=== PATIENT | female | born 1940 | race Caucasian/White ===

== ENCOUNTER 2020-07-09 12:29 | Inpatient (IN) ==
--- OUTSIDE RECORDS SUMMARY | 2020-07-09 12:32 | External Medical Summary | Continuity of Care Document ---
:1940 Author Name Mary Lou Wilder, Provider Address Unavailable Unavailable , Care Team Providers Name Role Phone Unavailable Unavailable Unavailable PCP, UNKNOWN Unavailable Unavailable Problems Active medical history not documented Allergies and Adverse Reactions Allergy history not documented Medications Medications not documented Procedures Procedures not documented Immunizations Immunizations not documented Plan of Treatment Planned Observations Planned Goals not documented Results No Known Results Results not documented
[2020-07-09 13:51] LABS: Basophils # (auto) 0.01 K/uL (0-0.2); Basophils % (auto) 0.1 %; Eosinophils # (auto) 0.01 K/uL (0-0.5); Eosinophils % (auto) 0.1 %; Hematocrit (blood only) 36.8 % (37-47); Hemoglobin 12.9 g/dL (12.0-16.0); Immature Granulocytes # (auto) 0.04 K/uL (0.00-0.02); Immature Granulocytes % (auto) 0.5 %; Lymphocytes # (auto) 0.62 K/uL (1.2-3.4); Lymphocytes % (auto) 7.8 %; Mean Corpuscular Hemoglobin 33.7 pg (25-34); Mean Corpuscular Hgb Conc 35.1 g/dL (32-36); Mean Corpuscular Volume 96.1 fL (80-100); Mean Platelet Volume 9.8 fL (7.4-10.4); Monocytes # (auto) 0.62 K/uL (0.11-0.59); Monocytes % (auto) 7.8 %; Neutrophils # (auto) 6.62 K/uL (1.4-6.5); Neutrophils % (auto) 83.7 %; Platelet Count 298 K/uL (130-400); RDW Standard Deviation 48.4 fL (36.4-46.3); Red Blood Count 3.83 M/uL (4.2-5.4); White Blood Count 7.92 K/uL (4.8-10.8)
--- NOTE | 2020-07-09 13:53 | Emergency Department Note ---
Impression & Plan Lumbar radiculopathy ED Provider Note INFORMANT: Patient ED PROVIDER(S): Jaun Hays MD CHIEF COMPLAINT: Back pain PLAN: Disposition: Admitted Condition: Good Outpatient prescription management: None Referral: None MEDICAL DECISION MAKING: Patient presented complaining of significant back pain she also noted some flushing burning sensation in her arms. She was treated with IV Dilaudid and Zofran and did feel better with this. The patient's CBC and chemistry panel was unremarkable. She also had a negative troponin and urinalysis. ECG revealed an atrial sensed ventricular paced rhythm. The patient underwent CT imaging of her neck and her lumbar spine. She was found to have adenopathy in the neck and a abnormality in the area of the iliac on lumbar imaging. Radiology did raise concerns about possible lymphoma. CBC is unremarkable and the patient does not have a history. I did discuss the abnormalities with the patient and daughter. The patient does have nerve impingement and this is likely the cause of her pain in the right leg. The patient and daughter were pleased with the treatment. Consultation was made with the hospitalist service. The patient was evaluated in the ER by the [facility] team admitted. Triage Nursing notes reviewed and agree them. Additional history obtained from daughter Vital Signs: reviewed and remarkable for no significant abnormalities Differential diagnosis: Musculoskeletal, disc herniation, fracture, metastatic disease, cord compression, discitis, sciatica, cauda equina, infection, aortic disease, renal colic, gastrointestinal, as well as other pathologies. Diagnostics interpreted by me: ECG: Twelve-lead ECG reveals an atrial sensed ventricular paced rhythm at 92 bpm there is no ST elevation. No dysrhythmia. When compared to ECG of 2013 the paced rhythm is new. Imaging studies: CT scans of the cervical spine and lumbar spine as noted above. I refer you to the EMR for further details. Consultation(s): [facility] hospitalist service HPI: The patient is a 79 year old female who presents to the Emergency Room with complaints of low back pain. This started 10 days ago and is worsening. The patient also notes the following associated symptoms, neck pain, arm pain described as burning and pain in the right leg. Saw [facility] ortho at [facility] and had xrays done. Noted "pinch nerve" and prescribed medication and PT. Noted upset stomach with gabapentin and the hydrocodone did not help the pain. The patient has also tried steroids for relieving factors. Current pain is rated as 10/10. Pt denies LOC, headache, fevers, chills, diaphoresis, visual changes, chest pain, breathing difficulties, nausea, vomiting, abdominal pain, bowel or bladder dysfunction, melena, hematochezia, urinary symptoms, numbness, weakness, lymphadenopathy, rash, or other complaints. ROS: See above HPI for pertinent positives & negatives. A total of 10 systems reviewed and were otherwise negative. PAST MEDICAL HISTORY:See Below , bowel obstructions PAST SURGICAL HISTORY:See Below,pacemaker FAMILY HISTORY:See Below SOCIAL HISTORY:See Below, Occ. Etoh HOME MEDICATIONS:See Below ALLERGIES:See Below VITALS:See Below PHYSICAL EXAMINATION: GENERAL: Awake, alert, uncomfortable-appearing, in no distress HENT: Normocephalic, atraumatic. Oropharynx unremarkable. EYES: Normal conjunctiva. Sclera non-icteric. NECK: Inspection normal. Non-tender. Supple. No nuchal rigidity. FROM. No masses. RESPIRATORY: Clear to auscultation. No wheezes. No rales. Normal respiratory effort. CARDIAC: Normal rate. Normal rhythm. No murmurs. No rubs. Extremities warm and well perfused. Pulses equal. No JVD. GI: Soft, non-distended. No tenderness to palpation. No rebound or guarding. No masses. RECTAL: Deferred. MUSCULOSKELETAL: Atraumatic. Chest examination reveals no tenderness. The back is symmetrical on inspection without obvious abnormality. Right sciatic notch TTP. There is no CVA tenderness to palpation. No joint edema. LOWER EXTREMITIES: Calves are equal size bilaterally and non-tender. No edema. No discoloration. NEURO: Normal sensorium. No sensory or motor deficits noted. No saddle anesthesia SKIN: No rash or jaundice noted. Jaun Hays MD Past Med/Surg History Medical History Atrial fibrillation CKD (chronic kidney disease), stage III GERD (gastroesophageal reflux disease) Pacemaker Tachy-joseluis syndrome Surgical History History of hysterectomy Family History Father Heart disease Mother Colorectal cancer Social History Smoking Status: Former smoker Hx Alcohol Use: No Hx Substance Use: No Preferred Language: Citizen Of [place] Communication Ability: Effective Equal Opportunity Officer Required: No Beliefs That Will Affect Care: None Current Living Situation: Alone Feels Safe at Home: Yes Safety Concerns: Feels Safe At This Time Assistive Devices: None Allergies Allergies Allergy/AdvReac Type Severity Reaction Status Date / Time No Known Allergies Allergy Unknown Verified 07/09/20 14:40 Home Meds Home Medications Medication Instructions Recorded Confirmed apixaban [Eliquis] 5 mg PO BID 07/09/20 07/09/20 docusate sodium [Colace] 100 mg PO DAILY 07/09/20 07/09/20 flecainide 75 mg PO Q12H 07/09/20 07/09/20 methylprednisolone 4 mg PO UD 07/09/20 07/09/20 [Methylprednisone] metoprolol succinate 25 mg PO DAILY 07/09/20 07/09/20 mineral oil 15 ml PO DAILY 07/09/20 07/09/20 triazolam 0.125 mg PO HS 07/09/20 07/09/20 Results & Data (ED) Vital Signs Vital Signs - 24 hr 07/09/20 12:47 07/09/20 13:30 07/09/20 13:35 Temperature 36.5 C Temperature Source Temporal Artery Scan Pulse Rate 98 H 93 H Pulse Rate from SpO2 Sensor 93 H Pulse Rhythm Regular Pulse Strength Normal Respiratory Rate 18 21 16 Respiratory Effort / Characteristics Non-Labored Spontaneous Non-Labored Spontaneous Respiratory Depth Normal Normal Respiratory Pattern Regular Blood Pressure 116/78 147/89 H Blood Pressure Mean 90 108 Blood Pressure Position Sitting Pulse Oximetry 98 98 98 Oxygen Delivery Method Room Air Room Air Sepsis Recent Fever Within 48 Hours No Sepsis New/Unexplained Change in Mental Status No Sepsis Action Taken by Nursing No Action Required 07/09/20 14:00 07/09/20 14:30 07/09/20 15:31 Temperature Temperature Source Pulse Rate 95 H 98 H 96 H Pulse Rate from SpO2 Sensor 95 H 99 H Pulse Rhythm Pulse Strength Respiratory Rate 25 H 19 18 Respiratory Effort / Characteristics Respiratory Depth Respiratory Pattern Blood Pressure 127/73 133/96 Blood Pressure Mean 91 108 Blood Pressure Position Pulse Oximetry 97 98 Oxygen Delivery Method Sepsis Recent Fever Within 48 Hours Sepsis New/Unexplained Change in Mental Status Sepsis Action Taken by Nursing 07/09/20 15:32 Temperature Temperature Source Pulse Rate 95 H Pulse Rate from SpO2 Sensor 96 H Pulse Rhythm Pulse Strength Respiratory Rate 16 Respiratory Effort / Characteristics Respiratory Depth Respiratory Pattern Blood Pressure 142/75 H Blood Pressure Mean 97 Blood Pressure Position Pulse Oximetry 99 Oxygen Delivery Method Sepsis Recent Fever Within 48 Hours Sepsis New/Unexplained Change in Mental Status Sepsis Action Taken by Nursing Laboratory Data Result diagrams: 07/09/20 13:32 07/09/20 13:32 Lab Results 07/09/20 07/09/20 07/09/20 Range/Units 13:32 13:32 14:36 WBC 7.92 (4.8-10.8) K/uL RBC 3.83 L (4.2-5.4) M/uL Hgb 12.9 (12.0-16.0) g/dL Hct 36.8 L (37-47) % MCV 96.1 (80-100) fL MCH 33.7 (25-34) pg MCHC 35.1 (32-36) g/dL RDW Std Deviation 48.4 H (36.4-46.3) fL RDW Coeff of Oliver 14.0 (11.5-14.5) % Plt Count 298 (130-400) K/uL MPV 9.8 (7.4-10.4) fL Immature Gran % (Auto) 0.5 % Neut % (Auto) 83.7 % Lymph % (Auto) 7.8 % Wayne % (Auto) 7.8 % Eos % (Auto) 0.1 % Baso % (Auto) 0.1 % Neut # (Auto) 6.62 H (1.4-6.5) K/uL Lymph # (Auto) 0.62 L (1.2-3.4) K/uL Wayne # (Auto) 0.62 H (0.11-0.59) K/uL Eos # (Auto) 0.01 (0-0.5) K/uL Baso # (Auto) 0.01 (0-0.2) K/uL Immature Gran # (Auto) 0.04 H (0.00-0.02) K/uL Absolute Nucleated RBC 0.00 (0-0) K/uL Nucleated RBC % (auto) 0.0 % Sodium 130 L (136-145) mmol/L Potassium 4.1 (3.5-5.1) mmol/L Chloride 97 L (98-107) mmol/L Carbon Dioxide 23 (21-32) mmol/L Anion Gap 11.0 (3-11) BUN 23 H (7-18) mg/dl Creatinine 1.40 H (0.6-1.2) mg/dl Est Cr Clr Drug Dosing 28.8 ml/min Est GFR ( Amer) 41.0 Est GFR (Non-Af Amer) 35.4 BUN/Creatinine Ratio 16.1 (10-20) Glucose 108 H (70-99) mg/dl Calcium 9.0 (8.5-10.1) mg/dl Total Bilirubin 2.1 H (0.2-1) mg/dl AST 21 (15-37) U/L ALT 30 (12-78) U/L Alkaline Phosphatase 89 (45-117) U/L Troponin I < 0.015 (0-0.045) ng/ml Total Protein 6.8 (6.4-8.2) gm/dl Albumin 4.1 (3.4-5.0) gm/dl Globulin 2.7 (2.5-4.0) gm/dl Albumin/Globulin Ratio 1.5 (0.9-2) Urine Color Urine Appearance (Clear) Urine pH (4.5-7.5) Ur Specific [place] (1.000-1.030) Urine Protein (Negative) Urine Glucose (UA) (Negative) Urine Ketones (Negative) Urine Blood (Negative) Urine Nitrite (Negative) Urine Bilirubin (Negative) Urine Urobilinogen (Negative) Ur Leukocyte Esterase (Negative) COVID-19 Eval Order Covid19 [facility] SARS-CoV-2, RNA, NAAT (NEGATIVE) 07/09/20 07/09/20 Range/Units 14:36 14:41 WBC (4.8-10.8) K/uL RBC (4.2-5.4) M/uL Hgb (12.0-16.0) g/dL Hct (37-47) % MCV (80-100) fL MCH (25-34) pg MCHC (32-36) g/dL RDW Std Deviation (36.4-46.3) fL RDW Coeff of Oliver (11.5-14.5) % Plt Count (130-400) K/uL MPV (7.4-10.4) fL Immature Gran % (Auto) % Neut % (Auto) % Lymph % (Auto) % Wayne % (Auto) % Eos % (Auto) % Baso % (Auto) % Neut # (Auto) (1.4-6.5) K/uL Lymph # (Auto) (1.2-3.4) K/uL Wayne # (Auto) (0.11-0.59) K/uL Eos # (Auto) (0-0.5) K/uL Baso # (Auto) (0-0.2) K/uL Immature Gran # (Auto) (0.00-0.02) K/uL Absolute Nucleated RBC (0-0) K/uL Nucleated RBC % (auto) % Sodium (136-145) mmol/L Potassium (3.5-5.1) mmol/L Chloride (98-107) mmol/L Carbon Dioxide (21-32) mmol/L Anion Gap (3-11) BUN (7-18) mg/dl Creatinine (0.6-1.2) mg/dl Est Cr Clr Drug Dosing ml/min Est GFR ( Amer) Est GFR (Non-Af Amer) BUN/Creatinine Ratio (10-20) Glucose (70-99) mg/dl Calcium (8.5-10.1) mg/dl Total Bilirubin (0.2-1) mg/dl AST (15-37) U/L ALT (12-78) U/L Alkaline Phosphatase (45-117) U/L Troponin I (0-0.045) ng/ml Total Protein (6.4-8.2) gm/dl Albumin (3.4-5.0) gm/dl Globulin (2.5-4.0) gm/dl Albumin/Globulin Ratio (0.9-2) Urine Color Yellow Urine Appearance Clear (Clear) Urine pH 5.0 (4.5-7.5) Ur Specific [place] 1.013 (1.000-1.030) Urine Protein Negative (Negative) Urine Glucose (UA) Negative (Negative) Urine Ketones 1+ H (Negative) Urine Blood Negative (Negative) Urine Nitrite Negative (Negative) Urine Bilirubin Negative (Negative) Urine Urobilinogen Negative (Negative) Ur Leukocyte Esterase Negative (Negative) COVID-19 Eval Order SARS-CoV-2, RNA, NAAT NEGATIVE (NEGATIVE) Administered Medications Flecainide Acetate (Flecainide Acetate 100 Mg Tablet) 75 mg PO Q12H [facility] Stop: 08/08/20 18:59 Last Admin: 07/09/20 19:00 Dose: 75 mg Documented by: [id number] Sodium Chloride (Nss 1000ml) 1,000 mls @ 80 mls/hr IV .[id number] [facility]AN[facility] Stop: 07/10/20 18:53 Last Admin: 07/09/20 18:28 Dose: 80 mls/hr Documented by: [id number] Lidocaine (Lidocaine 5% 1 Patch) 1 patch TD DAILY@1800 [facility] Stop: 08/08/20 17:59 Last Admin: 07/09/20 18:58 Dose: 1 patch Documented by: [id number] Miscellaneous (Remove Lidoderm Patch) 1 ea N/A DAILY@0600 [facility] Stop: 08/08/20 17:59 Last Admin: 07/09/20 18:59 Dose: Not Given Documented by: [id number] Discontinued Medications Hydromorphone HCl (Hydromorphone Inj 0.5 Mg/0.5 Ml Syr) 0.5 mg IV Q15M PRN PRN Reason: Pain Stop: 07/23/20 13:57 Last Admin: 07/09/20 14:34 Dose: 0.5 mg Documented by: [id number] Ondansetron HCl (Ondansetron Inj 2 Mg/Ml 2 Ml Vial) 4 mg IV NOW STA Stop: 07/09/20 13:59 Last Admin: 07/09/20 14:34 Dose: 4 mg Documented by: [id number] Discharge Plan Visit Data Chief Complaint: Back Injury/Pain Stated Complaint: pain in back shooting down legs and arms ED Provider: Jaun Hays Discharge Problem: Lumbar radiculopathy Patient Disposition: Admitted As Inpatient Discharge Instructions Interventions: ED Discharge Assessment Last Done: 07/09/20 17:22
[2020-07-09] MEDS ORDERED: HYDROmorphone INJ 0.5 MG/0.5 ML SYR IV PRN ×2 (13:58→17:54)
[2020-07-09] MEDS ORDERED: ONDANSETRON INJ 2 MG/ML 2 ML VIAL IV STA (13:58)
[2020-07-09 14:08] LABS: Alanine Aminotransferase 30 U/L (12-78); Albumin Level 4.1 gm/dl (3.4-5.0); Aspartate Aminotransferase 21 U/L (15-37); BUN Creatinine Ratio 16.1 (10-20); Blood Urea Nitrogen 23 mg/dl (7-18); Carbon Dioxide 23 mmol/L (21-32); Chloride 97 mmol/L (98-107); Creatinine Clr Calc Pharmacy 28.8 ml/min; Est GFR (Non-African American) 35.4; Glucose 108 mg/dl (70-99); Potassium 4.1 mmol/L (3.5-5.1); Sodium 130 mmol/L (136-145)
[2020-07-09 14:12] LABS: Albumin Globulin Ratio 1.5 (0.9-2); Alkaline Phosphatase 89 U/L (45-117); Bilirubin,Total 2.1 mg/dl (0.2-1); Globulin 2.7 gm/dl (2.5-4.0); Total Protein 6.8 gm/dl (6.4-8.2); Troponin I < 0.015 ng/ml (0-0.045)
[2020-07-09 15:09] LABS: Appearance Urine Clear (Clear); Bilirubin Urine Negative (Negative); Blood Urine Negative (Negative); Color Urine Yellow; Glucose Urine UA Negative (Negative); Ketones Urine 1+ (Negative); Leukocyte Esterase Urine Negative (Negative); Nitrite Urine Negative (Negative); Protein Urine Negative (Negative); Specific Gravity Urine 1.013 (1.000-1.030); Urobilinogen Urine Negative (Negative)
--- NOTE | 2020-07-09 15:42 | CT Scan Report ---
CT SCAN OF THE CERVICAL SPINE CLINICAL HISTORY: Neck pain. COMPARISON STUDY: No priors. TECHNIQUE: CT scan of the cervical spine is performed from the skull base to the upper thoracic spine . Images are reviewed in the axial, sagittal, and coronal planes. IV contrast was not administered fo r this examination. A dose lowering technique was utilized adhering to the principles of ALARA. CT DOSE: 1083.44 mGy.cm FINDINGS: Skeletal structures: The skeletal structures are osteopenic. There is no evidence of fracture or subl uxation involving the cervical spine. Vertebral body height is maintained. There is minimal anterolis thesis at C3-C4 and C4-C5. Alignment is otherwise preserved. There is straightening of the cervical l ordosis. Anterior osteophytes are seen throughout. The odontoid process and lateral masses are intact . The atlantoaxial articulation is preserved. The spinous processes appear intact. There is moderate to advanced multilevel cervical spondylosis. Uncovertebral and facet arthropathy contribute to forami nal stenosis at most levels. There is complete bony fusion of several facet joints. Intervertebral discs: There is moderate disc space narrowing at C5-C6 and C6-C7. Mild disc space narr owing is seen at C4-C5. Central canal: Large posterior disc osteophyte complexes at C4-C5, C5-C6, and C6-C7 may contribute to multilevel acquired compromise of the central canal. Soft tissues: The prevertebral and paraspinous soft tissues are within normal limits. There are numer ous prominent cervical lymph nodes. A left cervical chain node on image #41 measures 1.2 x 1.0 cm. A left cervical node on image #35 measures 1.0 x 0.9 cm. A node in the right lower cervical chain on im age #67 measures 1.1 x 0.7 cm. Calvarium: The visualized calvarium at the skull base appears intact. Brain parenchyma: Partially visualized brain parenchyma at the skull base is within normal limits. Sinuses and mastoids: The visualized paranasal sinuses are clear. The mastoid air cells are well pneu matized. Lung apices: Clear as visualized. IMPRESSION: 1. There is no evidence of fracture or subluxation involving the cervical spine. 2. Osteopenia and multilevel spondylotic change as above. 3. There are numerous mildly enlarged cervical chain lymph nodes. Clinical correlation will be requir ed. ACT 112: Negative or not required by law. Electronically signed by: Mino Venegas M.D. 07/09/2020 3:41 PM
--- NOTE | 2020-07-09 15:44 | CT Scan Report ---
LUMBAR SPINE CT CT DOSE: HISTORY: right sciatic pain TECHNIQUE: Multiaxial CT images of the lumbar spine were performed and reformatted in the sagittal an d coronal plane without the use of contrast. A dose lowering technique was utilized adhering to the principles of ALARA. COMPARISON: None. FINDINGS: A punctate stone within the left kidney. There is abnormal soft tissue surrounding the left common iliac artery. This is concerning for a neoplastic process such as lymphoma. This measures up to 2 cm in thickness. No fracture or subluxation within the lumbar spine. Severe disc space narrowing with partial fusion of the L5-S1 vertebral bodies. There is mild disc space narrowing at L2-L3 and T 12-L1. 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 This is most pronounced at the L 3-L4 and L4-L5 levels. Small right paracentral focal disc protrusion at L1-L2 without significant fabiola tral canal narrowing. There is a moderate to large right paracentral/foraminal focal disc protrusion at L2-L3 which measures 1.6 x 0.5 cm. The disc protrusion likely compresses the exiting right nerve r oot at this level. There is moderate to severe central canal narrowing at this level due to the disc bulge and severe ligamentum and facet hypertrophy. Mild to moderate central canal narrowing at L3-L4 and L4-L5 due to the disc bulges and advanced ligamentum and facet hypertrophy. Calcified small focal central disc protrusion at L5-S1 resulting in mild central canal narrowing. IMPRESSION: 1. No fracture or subluxation within the lumbar spine. 2. Abnormal soft tissue surrounding the left common iliac artery measuring up to 2 cm in thickness. T his is concerning for neoplastic process such as lymphoma. 3. There is a moderate to large right paracentral/foraminal disc protrusion at L2-L3 which likely com presses the exiting nerve root at this level. 4. Additional degenerative changes as described above. ACT 112: Negative or not required by law. Electronically signed by: Ahmet Savage M.D. 07/09/2020 3:43 PM
[2020-07-09] MEDS ORDERED: ACETAMINOPHEN 325 MG TAB PO PRN (17:54)
[2020-07-09] MEDS ORDERED: DEXAMETHASONE SOD INJ 4 MG/ML VIAL IV SCH (17:54)
--- NOTE | 2020-07-09 18:17 | Electrocardiogram Report ---
Test Reason : Blood Pressure : / mmHG Vent. Rate : 092 BPM Atrial Rate : 092 BPM P-R Int : 208 ms QRS Dur : 088 ms QT Int : 400 ms P-R-T Axes : 099 084 108 degrees QTc Int : 494 ms Atrial-sensed ventricular-paced rhythm Abnormal ECG When compared with ECG of 13-AUG-2012 06:36, Electronic ventricular pacemaker has replaced Sinus rhythm Vent. rate has increased BY 47 BPM Confirmed by Gage Dang ([id number]) on 07/09/2020 6:16:33 PM Referred By: Confirmed By:Gage Dang
--- NOTE | 2020-07-09 18:25 | History & Physical Report ---
Date of Service July 09, 2020 Assessment & Plan (1) Lumbar radiculopathy: Pt is 79 y/o F with PMH atrial fibrillation on Eliquis, tachybrady syndrome s/p pacemaker, CKD III, GERD presented to ER for low back pain x [address] C-SPINE: There is no evidence of fracture or subluxation involving the cervical spine. CT L-SPINE: No fracture or subluxation within the lumbar spine. Abnormal soft tissue surrounding the left common iliac artery measuring up to 2 cm in thickness. This is concerning for neoplastic process such as lymphoma. There is a moderate to large right paracentral/foraminal disc protrusion at L2-L3 which likely compresses the exiting nerve root at this level. Afebrile. In ER given Dilaudid with moderate relief of pain. Oxycodone, Dilaudid prn pain Decadron 4mg Q8H Consult Spine ortho PT/OT eval (2) Lymphadenopathy: CT Cervical spine: are numerous mildly enlarged cervical chain lymph nodes CT Lumbar spine: Abnormal soft tissue surrounding the left common iliac artery measuring up to 2 cm in thickness. This is concerning for neoplastic process such as lymphoma. Denies weight loss, appetite changes, noted lymphadenopathy Obtain peripheral smear Anticipate will need outpatient follow up heme/onc (3) Hyponatremia: Na: 130 Gentle IVF Recheck BMP in am (4) Atrial fibrillation: On Eliquis Hold Eliquis for now in case of procedure and dose heparin SQ Continue flecainide (5) Tachy-joseluis syndrome: S/P pacemaker paced rhythm on ekg (6) CKD (chronic kidney disease), stage III: Cr: 1.4. Baseline Cr: 1.2 Monitor renal functions, avoid nephrotoxic agents when possible (7) GERD (gastroesophageal reflux disease): Pt was taking Zantac with relief until off market Will start pepcid BID as is on steroids DVT Prophylaxis -Heparin SQ Full Code as per discussion with pt Follows with G provider- Gerard Guidry PA-C for routine care Pt was seen and care coordinated with Dr Billings. See addendum Admission and Anticipated Discharge Date Admission Date: July 09, 2020 History of Present Illness Chief Complaint: back pain Primary Care Provider: Gerard Guidry Pt is 79 y/o F with PMH atrial fibrillation on Eliquis, tachybrady syndrome s/p pacemaker, CKD III, GERD presented to ER for low back pain x 10 days. Reports was reaching overhead and felt popping sensation to low back 10 days ago. C/O right low back pain with radiation to right lower leg ending at the knee. Also c/o paresthesias and numbness sensation to right thigh. Denies any other injury or trauma. Reports had some burning sensation of low back that radiated up back to neck and down bilateral arms. Went to PT and is On medrol dose pack without relief. Tried gabapentin, duloxetine but she reports side effects so did not take further. Reports has appointment with Ortho Spine-Dr Orozco next week. Denies fever/chills, diaphoresis, N/V/D/C, SCOTT, dizziness, syncope, vision changes, neck pain, CP, SOB, orthopnea, palpitations, cough, sore throat, choking, otalgia, rhinorrhea, abdominal pain, extremity weakness, extremity edema, rashes, urinary symptoms, loss control of bowel/bladder. Allergies Allergy/AdvReac Type Severity Reaction Status Date / Time No Known Allergies Allergy Unknown Verified 07/09/20 14:40 Home Medications Medication Instructions Recorded Confirmed Type apixaban [Eliquis] 5 mg PO BID 07/09/20 07/09/20 History docusate sodium [Colace] 100 mg PO DAILY 07/09/20 07/09/20 History flecainide 75 mg PO Q12H 07/09/20 07/09/20 History methylprednisolone 4 mg PO UD 07/09/20 07/09/20 History [Methylprednisone] metoprolol succinate 25 mg PO DAILY 07/09/20 07/09/20 History mineral oil 15 ml PO DAILY 07/09/20 07/09/20 History triazolam 0.125 mg PO HS 07/09/20 07/09/20 History Past Med/Surg History Medical History Atrial fibrillation CKD (chronic kidney disease), stage III GERD (gastroesophageal reflux disease) Pacemaker Tachy-joseluis syndrome Surgical History History of hysterectomy Family History Father Heart disease Mother Colorectal cancer Social History Smoking Status: Former smoker Hx Alcohol Use: No Hx Substance Use: No Preferred Language: Korean Communication Ability: Effective Visual Design Lead Required: No Beliefs That Will Affect Care: None Current Living Situation: Alone Feels Safe at Home: Yes Safety Concerns: Feels Safe At This Time Assistive Devices: Glasses Review of Systems Review of Systems: All systems reviewed & are unremarkable except as noted in HPI & below Physical Exam Physical Exam: General: no distress, WDWN Head: normocephalic, atraumatic Eyes: conjunctiva non-injected, anicteric ENT: normal inspection external ears, nose, mucous membranes moist Neck: supple, trachea midline, +nontender palpable cervical lymphadenopathy; no supraclavicular or axillary lymphadenopathy noted on palpation Lungs: clear, no respiratory distress, no wheezing/rhonchi/rales CV: RRR, no murmur, no pretibial edema Abd: normal BS, soft, non-tender Back: no discoloration, no significant tenderness to palpation of back at this time (pt received pain meds prior to exam), negative straight leg raising Ext: no cyanosis, no calf tenderness, distal pulses intact, sensation to light touch intact Neuro: A&O x 3, no focal deficits noted, normal affect Skin: warm, dry Results & Data Results & Data ([facility]) Vital Signs (Past 12 Hours) Vital Signs Temp Pulse Pulse Resp BP BP Pulse Ox 07/09/20 18:16 98 H 07/09/20 17:56 36.9 C 96 H 20 155/98 H 96 07/09/20 15:32 95 H 16 142/75 H 99 07/09/20 15:31 96 H 18 07/09/20 14:30 98 H 19 133/96 98 07/09/20 14:00 95 H 25 H 127/73 97 07/09/20 13:35 16 98 07/09/20 13:30 93 H 21 147/89 H 98 07/09/20 12:47 36.5 C 98 H 18 116/78 98 Laboratory Results Short CBC 07/09/20 Range/Units 13:32 WBC 7.92 (4.8-10.8) K/uL Hgb 12.9 (12.0-16.0) g/dL Hct 36.8 L (37-47) % Plt Count 298 (130-400) K/uL BMP 07/09/20 13:32 Sodium 130 L Potassium 4.1 Chloride 97 L Carbon Dioxide 23 BUN 23 H Creatinine 1.40 H Glucose 108 H Calcium 9.0 Cardiac Enzymes 07/09/20 Range/Units 13:32 Troponin I < 0.015 (0-0.045) ng/ml Liver Function 07/09/20 Range/Units 13:32 Total Bilirubin 2.1 H (0.2-1) mg/dl AST 21 (15-37) U/L ALT 30 (12-78) U/L Alkaline Phosphatase 89 (45-117) U/L Albumin 4.1 (3.4-5.0) gm/dl Urine 07/09/20 Range/Units 14:41 Urine Color Yellow Urine Appearance Clear (Clear) Urine pH 5.0 (4.5-7.5) Ur Specific [place] 1.013 (1.000-1.030) Urine Protein Negative (Negative) Urine Glucose (UA) Negative (Negative) Diagnostic Findings CT C-SPINE: IMPRESSION: 1. There is no evidence of fracture or subluxation involving the cervical spine. 2. Osteopenia and multilevel spondylotic change as above. 3. There are numerous mildly enlarged cervical chain lymph nodes. Clinical correlation will be required. CT L-SPINE: IMPRESSION: 1. No fracture or subluxation within the lumbar spine. 2. Abnormal soft tissue surrounding the left common iliac artery measuring up to 2 cm in thickness. This is concerning for neoplastic process such as lymphoma. 3. There is a moderate to large right paracentral/foraminal disc protrusion at L2-L3 which likely compresses the exiting nerve root at this level. 4. Additional degenerative changes as described above. ECG Findings: + paced rhythm Supervising Physician Co-Signing Physician Notes Patient is a 79-year-old female with history of atrial fibrillation, CKD stage III and other medical problems presents with history of worsening low back pain since 10 days duration. She reports associated right thigh numbness but denies any history of trauma. She denies any bowel or bladder incontinence, lower back numbness. Please review HPI for complete details of presentation. Lumbar spine CT showed findings suggestive of moderate to large disc protrusion at L2- L3, compressing the exiting nerve root at the level. Also showed incidental findings of soft tissue surrounding left common iliac artery measuring 2 cm in thickness. On exam patient is thin, well-nourished, no apparent distress, normocephalic atraumatic, lungs are clear to auscultation, normal breath sounds, irregular irregular heart sounds, no murmur, no pedal edema, abdomen soft, nontender, normal bowel sounds, alert, awake, oriented, grossly no focal neurologic deficits. Patient is admitted for management of lumbar radiculopathy secondary to disc herniation at L2-L3. Started on Decadron. Pain control. Consulted orthopedic surgery. PT OT consulted. Agree with holding Eliquis for possible procedure. May need steroid injection. Also noted incidental finding of lymphadenopathy in cervical region, and abnormal CT suggestive of soft tissue surrounding the left common iliac artery concerning for neoplastic process. Agree with peripheral smear. Will advise patient to follow-up with oncology as outpatient for further evaluation. I personally reviewed the record. Patient is interviewed and examined at bedside. Patient's care is coordinated with Beatrice Scanlon PA-C. Please refer to the documentation above for details of patient's presentation and for discussion of other issues.
[2020-07-09] MEDS: SODIUM CHLORIDE 0.9% 1000ML 1,000 ML IV SCH (18:28)
[2020-07-09] MEDS: LIDOCAINE 5% 1 PATCH TD SCH (18:58)
[2020-07-09] MEDS: FLECAINIDE ACETATE 100 MG TABLET PO SCH (19:00)
[2020-07-09] MEDS: DEXAMETHASONE SOD PHOSPHATE 4 MG in SYRINGE 0 ML IV SCH (20:50)
[2020-07-09] MEDS: FAMOTIDINE 20 MG TAB PO SCH (20:51)
[2020-07-09] MEDS ORDERED: ALPRAZolam 0.25 MG TABLET PO PRN (21:21)
[2020-07-09] MEDS: HEPARIN SOD 5,000 UNIT/0.5 ML VIAL SQ SCH (21:26)
[2020-07-10] MEDS: DEXAMETHASONE SOD PHOSPHATE 4 MG in SYRINGE 0 ML IV SCH ×3 (02:54→18:13)
[2020-07-10] MEDS: HEPARIN SOD 5,000 UNIT/0.5 ML VIAL SQ SCH ×3 (05:47→21:07)
[2020-07-10] MEDS: SODIUM CHLORIDE 0.9% 1000ML 1,000 ML IV SCH (05:54)
[2020-07-10] MEDS: FLECAINIDE ACETATE 100 MG TABLET PO SCH ×2 (06:28→18:13)
[2020-07-10 06:42] LABS: Hematocrit (blood only) 36.1 % (37-47); Hemoglobin 12.9 g/dL (12.0-16.0); Mean Corpuscular Hemoglobin 34.4 pg (25-34); Mean Corpuscular Hgb Conc 35.7 g/dL (32-36); Mean Corpuscular Volume 96.3 fL (80-100); Mean Platelet Volume 9.9 fL (7.4-10.4); Platelet Count 286 K/uL (130-400); RDW Coefficient of Variation 13.9 % (11.5-14.5); RDW Standard Deviation 48.4 fL (36.4-46.3); Red Blood Count 3.75 M/uL (4.2-5.4); White Blood Count 5.25 K/uL (4.8-10.8)
[2020-07-10 07:00] LABS: BUN Creatinine Ratio 18.1 (10-20); Calcium 8.5 mg/dl (8.5-10.1); Creatinine Clr Calc Pharmacy 29.9 ml/min; Est GFR (African American) 42.9; Potassium 4.2 mmol/L (3.5-5.1)
[2020-07-10] MEDS: FAMOTIDINE 20 MG TAB PO SCH ×2 (08:00→20:34)
[2020-07-10] MEDS: METOPROLOL SUCC 25MG EXT REL TAB PO SCH (08:00)
[2020-07-10] MEDS: DOCUSATE SODIUM 100 MG CAP PO SCH (08:00)
[2020-07-10] MEDS: oxyCODONE HCL IR 5 MG TAB (IMMEDIATE RELEASE) PO PRN ×2 (08:00→20:37)
--- NOTE | 2020-07-10 11:23 | Orthopedic Consultation ---
Date of Consultation July 10, 2020 Assessment & Plan (1) Lumbar radiculopathy: Patient's CAT scan does demonstrate evidence of a far lateral disc herniation with foraminal encroachment of L2-L3 on the right. This is consistent with her pain patterns and history. She seems to be responding well to steroids. I agreed to hold Eliquis for now continue with heparin. If her symptoms return she therefore could undergo an epidural injection. Ultimately the symptoms are severe and limiting nature we may have to consider discectomy. I doubt that this would be the course of action reviewing her response to steroids at this time. Present on Admission?: Yes History of Present Illness Reason for Consultation: Right leg pain Attending Physician: Morgan Billings MD History of Present Illness This is a very pleasant 79-year-old female presents with history of significant right anterior thigh pain. Is been present for several weeks. She is failed short course of physical therapy. She is trialed oral pain medication without improvement. She now feels much improved after IV steroids and oxycodone. Allergies Allergy/AdvReac Type Severity Reaction Status Date / Time No Known Allergies Allergy Unknown Verified 07/09/20 14:40 Home Medications Medication Instructions Recorded Confirmed Type apixaban [Eliquis] 5 mg PO BID 07/09/20 07/09/20 History docusate sodium [Colace] 100 mg PO DAILY 07/09/20 07/09/20 History flecainide 75 mg PO Q12H 07/09/20 07/09/20 History methylprednisolone 4 mg PO UD 07/09/20 07/09/20 History [Methylprednisone] metoprolol succinate 25 mg PO DAILY 07/09/20 07/09/20 History mineral oil 15 ml PO DAILY 07/09/20 07/09/20 History triazolam 0.125 mg PO HS 07/09/20 07/09/20 History Patient History Medical History Atrial fibrillation CKD (chronic kidney disease), stage III GERD (gastroesophageal reflux disease) Pacemaker Tachy-joseluis syndrome Surgical History History of hysterectomy Family History Father Heart disease Mother Colorectal cancer Social History Smoking Status: Former smoker Hx Alcohol Use: No Hx Substance Use: No Preferred Language: Central African Communication Ability: Effective Program Director Cable Television Required: No Beliefs That Will Affect Care: None Current Living Situation: Alone Feels Safe at Home: Yes Safety Concerns: Feels Safe At This Time Assistive Devices: Glasses Physical Exam Physical Exam: She still notes some numbness to the right anterior thigh compared to the left. On exam she appears comfortable. She exhibits excellent plus out of 5 strength to plantar flexion dorsiflexion stenosis longus bilateral quadriceps. Negative logroll. Some modest sensory deficits to the right anterior thigh compared to the left. No gross tension signs. Results & Data ([facility]) Vital Signs (Past 12 Hours) Vital Signs Temp Pulse Pulse Resp BP Pulse Ox 07/10/20 07:19 36.6 C 105 H 78 18 120/79 91 07/10/20 03:52 36.5 C 96 H 20 138/82 96 07/10/20 00:17 36.9 C 94 H 20 124/77 94 07/10/20 00:13 90
[2020-07-10] MEDS: POLYETHYLENE (MIRALAX) 17 GM PACK PO SCH (12:23)
--- NOTE | 2020-07-10 15:01 | Hospitalist Progress Note ---
Date of Service July 10, 2020 Assessment & Plan (1) Lumbar radiculopathy: L2-L3 Disc Herniation Lumbar radiculopathy -CT C-SPINE: There is no evidence of fracture or subluxation involving the cervical spine. -CT L-SPINE: No fracture or subluxation within the lumbar spine. Abnormal soft tissue surrounding the left common iliac artery measuring up to 2 cm in thickness. This is concerning for neoplastic process such as lymphoma. There is a moderate to large right paracentral/foraminal disc protrusion at L2-L3 which likely compresses the exiting nerve root at this level. Continue IV Decadron Pain control Appreciate orthopedics input Hold Eliquis for now for possible procedure Continue PT OT May need epidural injection/discectomy if symptoms persist (2) Lymphadenopathy: Incidental findings on CAT scan--Cervical lymphadenopathy -CT Cervical spine: are numerous mildly enlarged cervical chain lymph nodes -CT Lumbar spine: Abnormal soft tissue surrounding the left common iliac artery measuring up to 2 cm in thickness. This is concerning for neoplastic process such as lymphoma. -Peripheral smear: pending -Will need further work-up as outpatient (3) Hyponatremia: Likely secondary to dehydration Sodium levels: 130>135 Received IV fluids Monitor (4) Atrial fibrillation: On Eliquis Hold Eliquis for now Re:Possible need for procedure Continue heparin SQ Continue flecainide, Metoprolol (5) Tachy-joseluis syndrome: S/P pacemaker Continue flecainide, metoprolol (6) CKD (chronic kidney disease), stage III: Baseline Cr: 1.2 Cr:1.3 Monitor renal functions Avoid nephrotoxic agents as able (7) GERD (gastroesophageal reflux disease): Pt was taking Zantac with relief until off market Continue Pepcid BID while on steroids DVT Px Heparin SQ Code Status Full Code Admission and Anticipated Discharge Date Admission Date: July 09, 2020 Subjective Patient is seen and examined at bedside Back pain is better controlled after steroid initiation Discussed with Dr. Orozco this morning Persistent right thigh numbness Tingling, heartburn resolved Denies chest pain, dyspnea, dizziness, nausea, abdominal pain Offers no other complaints Review of Systems Review of Systems: All systems reviewed & are unremarkable except as noted in HPI & below Physical Exam Physical Exam: Physical Exam: Vitals signs as noted above General Appearance:Thin, no apparent distress Head: normocephalic, Atraumatic Eyes: normal inspection, EOMI Neck: supple, Trachea midline Respiratory/Chest: Normal breath sounds, CTA Cardiovascular: Irregularly irregular, no murmur Abdomen/GI:Soft, Non tender, Bowel sounds present Extremities/Musculoskelatal:normal inspection, no edema Neurologic/Psych:AAOX3, grossly no focal neurological deficits Skin: normal color, warm Results & Data Results & Data ([facility]) Vital Signs (Past 12 Hours) Vital Signs Temp Pulse Pulse Resp BP Pulse Ox 07/10/20 14:42 36.6 C 79 18 121/72 94 07/10/20 07:19 36.6 C 105 H 78 18 120/79 91 07/10/20 03:52 36.5 C 96 H 20 138/82 96 Laboratory Results Short CBC 07/10/20 Range/Units 06:10 WBC 5.25 (4.8-10.8) K/uL Hgb 12.9 (12.0-16.0) g/dL Hct 36.1 L (37-47) % Plt Count 286 (130-400) K/uL BMP 07/10/20 06:10 Sodium 135 L Potassium 4.2 Chloride 102 Carbon Dioxide 25 BUN 24 H Creatinine 1.35 H Glucose 105 H Calcium 8.5
[2020-07-10] MEDS: LIDOCAINE 5% 1 PATCH TD SCH (18:09)
[2020-07-10] MEDS: ALPRAZolam 0.5 MG TABLET PO PRN (23:53)
[2020-07-11] MEDS: DEXAMETHASONE SOD PHOSPHATE 4 MG in SYRINGE 0 ML IV SCH ×3 (02:52→21:03)
[2020-07-11] MEDS: HEPARIN SOD 5,000 UNIT/0.5 ML VIAL SQ SCH ×3 (06:02→21:03)
[2020-07-11] MEDS: FLECAINIDE ACETATE 100 MG TABLET PO SCH ×2 (06:03→18:15)
[2020-07-11 06:08] LABS: Hematocrit (blood only) 34.4 % (37-47); Hemoglobin 12.1 g/dL (12.0-16.0); Mean Corpuscular Hemoglobin 34.3 pg (25-34); Mean Corpuscular Hgb Conc 35.2 g/dL (32-36); Mean Corpuscular Volume 97.5 fL (80-100); Nucleated RBC # (auto) 0.02 K/uL (0-0); Nucleated RBC % (auto) 0.3 %; Platelet Count 281 K/uL (130-400); RDW Coefficient of Variation 14.1 % (11.5-14.5); RDW Standard Deviation 50.1 fL (36.4-46.3); Red Blood Count 3.53 M/uL (4.2-5.4); White Blood Count 6.62 K/uL (4.8-10.8)
[2020-07-11 06:40] LABS: BUN Creatinine Ratio 24.7 (10-20); Creatinine Clr Calc Pharmacy 34.2 ml/min; Est GFR (African American) 50.4; Est GFR (Non-African American) 43.5; Magnesium 2.3 mg/dl (1.8-2.4); Potassium 4.4 mmol/L (3.5-5.1)
[2020-07-11] MEDS: POLYETHYLENE (MIRALAX) 17 GM PACK PO SCH (08:05)
[2020-07-11] MEDS: FAMOTIDINE 20 MG TAB PO SCH ×2 (08:05→21:03)
[2020-07-11] MEDS: DOCUSATE SODIUM 100 MG CAP PO SCH (08:05)
[2020-07-11] MEDS: METOPROLOL SUCC 25MG EXT REL TAB PO SCH (08:05)
[2020-07-11] MEDS: oxyCODONE HCL IR 5 MG TAB (IMMEDIATE RELEASE) PO PRN (09:31)
--- NOTE | 2020-07-11 16:12 | Hospitalist Progress Note ---
Date of Service July 11, 2020 Assessment & Plan (1) Lumbar radiculopathy: L2-L3 Disc Herniation Lumbar radiculopathy -CT C-SPINE: There is no evidence of fracture or subluxation involving the cervical spine. -CT L-SPINE: No fracture or subluxation within the lumbar spine. Abnormal soft tissue surrounding the left common iliac artery measuring up to 2 cm in thickness. This is concerning for neoplastic process such as lymphoma. There is a moderate to large right paracentral/foraminal disc protrusion at L2-L3 which likely compresses the exiting nerve root at this level. Continue IV Decadron--Decrease to 4mg PO BID Pain control Appreciate orthopedics input Hold Eliquis for now for possible procedure Continue PT OT May need epidural injection/discectomy if symptoms persist Continue current medications (2) Lymphadenopathy: Incidental findings on CAT scan--Cervical lymphadenopathy -CT Cervical spine: are numerous mildly enlarged cervical chain lymph nodes -CT Lumbar spine: Abnormal soft tissue surrounding the left common iliac artery measuring up to 2 cm in thickness. This is concerning for neoplastic process such as lymphoma. -Peripheral smear: pending -Will need further work-up as outpatient (3) Hyponatremia: Likely secondary to dehydration Sodium levels: 130>135> 136 Received IV fluids Monitor (4) Atrial fibrillation: On Eliquis Hold Eliquis for now Re:Possible need for procedure Continue heparin SQ Continue flecainide, Metoprolol (5) Tachy-joseluis syndrome: S/P pacemaker Continue flecainide, metoprolol (6) CKD (chronic kidney disease), stage III: Baseline Cr: 1.2 Cr:1.4>1.3>1.1 Monitor renal functions Avoid nephrotoxic agents as able (7) GERD (gastroesophageal reflux disease): Pt was taking Zantac with relief until off market Continue Pepcid BID while on steroids DVT Px Heparin SQ Code Status Full Code Disposition PT/OT prior to discharge Admission and Anticipated Discharge Date Admission Date: July 09, 2020 Subjective Patient is seen and examined at bedside Back pain is better Reports right thigh soreness Sitting in chair during my encounter this morning No new complaints Right lower extremity numbness improved Denies chest pain, dyspnea, dizziness, nausea, abdominal pain Offers no other complaints Review of Systems Review of Systems: All systems reviewed & are unremarkable except as noted in HPI & below Physical Exam Physical Exam: Physical Exam: Vitals signs as noted above General Appearance:Thin, no apparent distress Head: normocephalic, Atraumatic Eyes: normal inspection, EOMI Neck: supple, Trachea midline Respiratory/Chest: Normal breath sounds, CTA Cardiovascular: Irregularly irregular, no murmur Abdomen/GI:Soft, Non tender, Bowel sounds present Extremities/Musculoskelatal:normal inspection, no edema Neurologic/Psych:AAOX3, grossly no focal neurological deficits Skin: normal color, warm Results & Data Results & Data ([facility]) Vital Signs (Past 12 Hours) Vital Signs Temp Pulse Pulse Resp BP Pulse Ox 07/11/20 15:00 36.4 C L 113 H 18 117/82 98 07/11/20 11:15 36.2 C L 103 H 20 132/88 97 07/11/20 07:44 36.6 C 94 H 18 125/84 97 07/11/20 07:04 104 H Laboratory Results Short CBC 07/11/20 Range/Units 05:35 WBC 6.62 (4.8-10.8) K/uL Hgb 12.1 (12.0-16.0) g/dL Hct 34.4 L (37-47) % Plt Count 281 (130-400) K/uL BMP 07/11/20 05:35 Sodium 136 Potassium 4.4 Chloride 104 Carbon Dioxide 25 BUN 29 H Creatinine 1.18 Glucose 106 H Calcium 9.0
[2020-07-11] MEDS: LIDOCAINE 5% 1 PATCH TD SCH (18:16)
[2020-07-11] MEDS: ALPRAZolam 0.5 MG TABLET PO PRN (23:26)
[2020-07-12] MEDS: HEPARIN SOD 5,000 UNIT/0.5 ML VIAL SQ SCH ×2 (05:59→14:47)
[2020-07-12] MEDS: FLECAINIDE ACETATE 100 MG TABLET PO SCH ×2 (06:00→18:29)
[2020-07-12 06:27] LABS: BUN Creatinine Ratio 24.8 (10-20); Calcium 9.5 mg/dl (8.5-10.1); Creatinine Clr Calc Pharmacy 28.8 ml/min; Est GFR (Non-African American) 35.4; Potassium 4.7 mmol/L (3.5-5.1)
[2020-07-12] MEDS: FAMOTIDINE 20 MG TAB PO SCH ×2 (08:01→20:49)
[2020-07-12] MEDS: DOCUSATE SODIUM 100 MG CAP PO SCH (08:02)
[2020-07-12] MEDS: METOPROLOL SUCC 25MG EXT REL TAB PO SCH ×2 (08:02→20:49)
[2020-07-12] MEDS: POLYETHYLENE (MIRALAX) 17 GM PACK PO SCH (08:12)
[2020-07-12] MEDS: DEXAMETHASONE SOD PHOSPHATE 4 MG in SYRINGE 0 ML IV SCH (09:51)
[2020-07-12] MEDS ORDERED: METOPROLOL TARTRATE 1 MG/ML VIAL IV PRN (13:39)
--- NOTE | 2020-07-12 15:34 | Hospitalist Progress Note ---
Date of Service July 12, 2020 Assessment & Plan (1) Lumbar radiculopathy: L2-L3 Disc Herniation Lumbar radiculopathy -CT C-SPINE: There is no evidence of fracture or subluxation involving the cervical spine. -CT L-SPINE: No fracture or subluxation within the lumbar spine. Abnormal soft tissue surrounding the left common iliac artery measuring up to 2 cm in thickness. This is concerning for neoplastic process such as lymphoma. There is a moderate to large right paracentral/foraminal disc protrusion at L2-L3 which likely compresses the exiting nerve root at this level. Continue IV Decadron--Decrease to 4mg PO Daily Pain control Appreciate orthopedics input Hold Eliquis for now for possible procedure Continue PT OT May need epidural injection/discectomy if symptoms persist Titrate down steroids as able (2) Lymphadenopathy: Incidental findings on CAT scan--Cervical lymphadenopathy -CT Cervical spine: are numerous mildly enlarged cervical chain lymph nodes -CT Lumbar spine: Abnormal soft tissue surrounding the left common iliac artery measuring up to 2 cm in thickness. This is concerning for neoplastic process such as lymphoma. -Peripheral smear: pending -Will need further work-up as outpatient (3) Hyponatremia: Likely secondary to dehydration Sodium levels: 130>135>136 Received IV fluids Monitor (4) Atrial fibrillation: Afib RVR Was on Eliquis Hold Eliquis for now Re:Possible need for procedure Continue flecainide, Metoprolol Increase Metoprolol to 25mg BID IV Lopressor PRN Start on IV Heparin while off Eliquis Consider cardiology eval if needed (5) Tachy-joseluis syndrome: S/P pacemaker Continue flecainide, metoprolol (6) CKD (chronic kidney disease), stage III: Baseline Cr: 1.2 Cr:1.4 Monitor renal functions Avoid nephrotoxic agents as able (7) GERD (gastroesophageal reflux disease): Pt was taking Zantac with relief until off market Continue Pepcid BID while on steroids DVT Px IV Heparin Code Status Full Code Disposition PT/OT prior to discharge Admission and Anticipated Discharge Date Admission Date: July 09, 2020 Subjective Patient is seen and examined at bedside Right thigh soreness, tingling and numbness continues to improve Denies back pain today Also denies chest pain, dyspnea, dizziness, nausea, abdominal pain No new complaints Afib RVR on monitor Review of Systems Review of Systems: All systems reviewed & are unremarkable except as noted in HPI & below Physical Exam Physical Exam: Physical Exam: Vitals signs as noted above General Appearance:Thin, no apparent distress Head: normocephalic, Atraumatic Eyes: normal inspection, EOMI Neck: supple, Trachea midline Respiratory/Chest: Normal breath sounds, CTA Cardiovascular: Irregularly irregular, no murmur Abdomen/GI:Soft, Non tender, Bowel sounds present Extremities/Musculoskelatal:normal inspection, no edema Neurologic/Psych:AAOX3, grossly no focal neurological deficits Skin: normal color, warm Results & Data Results & Data ([facility]) Vital Signs (Past 12 Hours) Vital Signs Temp Pulse Pulse Resp BP BP Pulse Ox 07/12/20 13:49 120 H 125/76 07/12/20 11:52 36.6 C 70 18 121/74 96 07/12/20 08:08 36.4 C L 101 H 18 119/80 96 07/12/20 07:46 108 H Laboratory Results [facility] 07/12/20 05:24 Sodium 136 Potassium 4.7 Chloride 101 Carbon Dioxide 28 BUN 35 H Creatinine 1.40 H Glucose 109 H Calcium 9.5
[2020-07-12] MEDS ORDERED: Heparin IV Standard *NO* Bolus IV SCH (15:45)
[2020-07-12] MEDS: HEPARIN SODIUM/DEXTROSE 25,000 UNITS/500 ML BAG IV SCH (16:26)
[2020-07-12] MEDS: LIDOCAINE 5% 1 PATCH TD SCH (18:29)
[2020-07-12 22:45] LABS: Partial Thromboplastin Ratio 2.9
[2020-07-12 22:57] LABS: Partial Thromboplastin Time 75.2 Seconds (21.0-31.0)
[2020-07-12] MEDS: ALPRAZolam 0.5 MG TABLET PO PRN (23:25)
[2020-07-13 04:45] LABS: Basophils # (auto) 0.01 K/uL (0-0.2); Basophils % (auto) 0.1 %; Eosinophils # (auto) 0.08 K/uL (0-0.5); Eosinophils % (auto) 0.9 %; Hematocrit (blood only) 35.9 % (37-47); Hemoglobin 12.7 g/dL (12.0-16.0); Immature Granulocytes # (auto) 0.05 K/uL (0.00-0.02); Immature Granulocytes % (auto) 0.5 %; Lymphocytes # (auto) 2.98 K/uL (1.2-3.4); Lymphocytes % (auto) 32.4 %; Mean Corpuscular Hemoglobin 34.5 pg (25-34); Mean Corpuscular Hgb Conc 35.4 g/dL (32-36); Mean Corpuscular Volume 97.6 fL (80-100); Mean Platelet Volume 10.1 fL (7.4-10.4); Monocytes # (auto) 1.31 K/uL (0.11-0.59); Monocytes % (auto) 14.2 %; Neutrophils # (auto) 4.77 K/uL (1.4-6.5); Neutrophils % (auto) 51.9 %; Platelet Count 263 K/uL (130-400); RDW Coefficient of Variation 14.1 % (11.5-14.5); RDW Standard Deviation 49.9 fL (36.4-46.3); Red Blood Count 3.68 M/uL (4.2-5.4)
[2020-07-13 05:07] LABS: Partial Thromboplastin Ratio > 5.3
[2020-07-13 05:10] LABS: Partial Thromboplastin Time > 139.0 Seconds (21.0-31.0)
[2020-07-13 05:27] LABS: BUN Creatinine Ratio 26.3 (10-20); Calcium 8.7 mg/dl (8.5-10.1); Creatinine Clr Calc Pharmacy 30.1 ml/min; Est GFR (African American) 43.3; Est GFR (Non-African American) 37.3; Magnesium 2.4 mg/dl (1.8-2.4); Potassium 3.9 mmol/L (3.5-5.1)
[2020-07-13] MEDS: FLECAINIDE ACETATE 100 MG TABLET PO SCH ×2 (06:08→17:50)
[2020-07-13 08:42] LABS: Partial Thromboplastin Ratio 1.8
[2020-07-13 08:48] LABS: Partial Thromboplastin Time 47.3 Seconds (21.0-31.0)
[2020-07-13] MEDS: FAMOTIDINE 20 MG TAB PO SCH ×2 (08:58→20:15)
[2020-07-13] MEDS: dexAMETHasone 4 MG TAB PO SCH (08:58)
[2020-07-13] MEDS: DOCUSATE SODIUM 100 MG CAP PO SCH (08:59)
[2020-07-13] MEDS: METOPROLOL SUCC 25MG EXT REL TAB PO SCH ×2 (08:59→20:15)
[2020-07-13] MEDS ORDERED: DEXAMETHASONE SOD PHOSPHATE 4 MG in SYRINGE 0 ML IV SCH (09:00)
[2020-07-13] MEDS: POLYETHYLENE (MIRALAX) 17 GM PACK PO SCH (09:04)
--- NOTE | 2020-07-13 13:09 | Orthopedic Progress Note ---
Date of Service July 13, 2020 Assessment & Plan (1) Lumbar radiculopathy: Admission and Anticipated Discharge Date Admission Date: July 09, 2020 Discussion with the patient today she would like to pursue a lumbar injections. She may be a candidate for an L2-L3 transforaminal injection. On the right. I will consult interventional pain management. She is currently on a heparin drip so that she would be able to undergo an injection with appropriate notice. She understands and agrees. Subjective Patient is tolerating very modest activity although she does still experience right L2 radiculopathy rating across the buttock and right anterior thigh. It is improved with steroids. She still somewhat limited. Physical Exam Physical Exam: Patient is in the chair at the bedside. She appears to be relatively comfortable. She exhibits excellent strength to right hip flexors and quadriceps. Results & Data ([facility]) Vital Signs (Past 12 Hours) Vital Signs Temp Pulse Pulse Resp BP Pulse Ox 07/13/20 11:08 36.3 C L 63 18 123/74 98 07/13/20 08:00 83 07/13/20 07:16 36.5 C 72 16 99/63 L 98 07/13/20 04:07 36.4 C L 66 18 103/66 97
[2020-07-13 15:26] LABS: Partial Thromboplastin Ratio 1.5; Partial Thromboplastin Time 39.4 Seconds (21.0-31.0)
--- NOTE | 2020-07-13 15:33 | Hospitalist Progress Note ---
Date of Service July 13, 2020 Assessment & Plan (1) Lumbar radiculopathy: L2-L3 Disc Herniation Lumbar radiculopathy -CT C-SPINE: There is no evidence of fracture or subluxation involving the cervical spine. -CT L-SPINE: No fracture or subluxation within the lumbar spine. Abnormal soft tissue surrounding the left common iliac artery measuring up to 2 cm in thickness. This is concerning for neoplastic process such as lymphoma. There is a moderate to large right paracentral/foraminal disc protrusion at L2-L3 which likely compresses the exiting nerve root at this level. Continue Decadron 4mg PO Daily Pain control Appreciate orthopedics input Hold Eliquis for now for possible procedure Continue PT OT Planned for epidural injection as able (2) Lymphadenopathy: Incidental findings on CAT scan--Cervical lymphadenopathy -CT Cervical spine: are numerous mildly enlarged cervical chain lymph nodes -CT Lumbar spine: Abnormal soft tissue surrounding the left common iliac artery measuring up to 2 cm in thickness. This is concerning for neoplastic process such as lymphoma. -Peripheral smear: Not contributory -Will need further work-up as outpatient (3) Hyponatremia: Likely secondary to dehydration Sodium levels normalized with IV fluids Monitor (4) Atrial fibrillation: Afib RVR Was on Eliquis Hold Eliquis for now Re:Possible need for procedure Continue flecainide, Metoprolol Increase Metoprolol to 25mg BID IV Lopressor PRN Continue IV Heparin while off Eliquis Consider cardiology eval if needed (5) Tachy-joseluis syndrome: S/P pacemaker Continue flecainide, metoprolol (6) CKD (chronic kidney disease), stage III: Baseline Cr: 1.2 Cr:1.3 Monitor renal functions Avoid nephrotoxic agents as able (7) GERD (gastroesophageal reflux disease): Pt was taking Zantac with relief until off market Continue Pepcid BID while on steroids DVT Px IV Heparin Transition back to Eliquis as able Code Status Full Code Disposition PT/OT prior to discharge Admission and Anticipated Discharge Date Admission Date: July 09, 2020 Subjective Patient is seen and examined at bedside No new complaints Heart rate is controlled Still has Right thigh pain Denies chest pain, dyspnea, dizziness, nausea, abdominal pain Review of Systems Review of Systems: All systems reviewed & are unremarkable except as noted in HPI & below Physical Exam Physical Exam: Physical Exam: Vitals signs as noted above General Appearance:Thin, no apparent distress Head: normocephalic, Atraumatic Eyes: normal inspection, EOMI Neck: supple, Trachea midline Respiratory/Chest: Normal breath sounds, CTA Cardiovascular: Irregularly irregular, no murmur Abdomen/GI:Soft, Non tender, Bowel sounds present Extremities/Musculoskelatal:normal inspection, no edema Neurologic/Psych:AAOX3, grossly no focal neurological deficits Skin: normal color, warm Results & Data Results & Data ([facility]) Vital Signs (Past 12 Hours) Vital Signs Temp Pulse Pulse Resp BP Pulse Ox 07/13/20 15:14 70 07/13/20 11:08 36.3 C L 63 18 123/74 98 07/13/20 08:00 83 07/13/20 07:16 36.5 C 72 16 99/63 L 98 07/13/20 04:07 36.4 C L 66 18 103/66 97 Laboratory Results Short CBC 07/13/20 Range/Units 04:27 WBC 9.20 (4.8-10.8) K/uL Hgb 12.7 (12.0-16.0) g/dL Hct 35.9 L (37-47) % Plt Count 263 (130-400) K/uL BMP 07/13/20 04:27 Sodium 138 Potassium 3.9 D Chloride 103 Carbon Dioxide 29 BUN 35 H Creatinine 1.34 H Glucose 100 H Calcium 8.7
--- NOTE | 2020-07-13 15:35 | Pain Management Consultation ---
Date of Consultation July 13, 2020 Assessment & Plan (1) Lumbar radiculopathy: Present on Admission?: Yes (2) Atrial fibrillation: * Patient with right lower extremity radicular pain consistent with CT findings. We discussed risks versus benefits of pursuing lumbar GOMEZ. Patient elects to pursue GOMEZ. Eliquis has been held with last dose on 07/09/20. Patient will be able to safely pursue GOMEZ on 07/15/20 pending her ability to safely hold heparin. Case discussed with Dr. Billings, who will hold heparin 24 hours prior to procedure. Will check PTT morning of procedure. Will plan for right L2-3 TF GOMEZ. * Medical management per hospitalist team Present on Admission?: Yes History of Present Illness Reason for Consultation: Right low back pain with radiation to right thing Requesting Physician: Bran Orozco DO Attending Physician: Morgan Billings MD History of Present Illness Mrs. Lr is an 79 year old white female who was admitted due to complaints of severe axial right sided low back pain radiating to right anterior thigh. Patient reported onset of symptoms 14 days prior to presentation. She was initially improving with outpatient steroid dose pack, but then experienced an exacerbation after participating in PT. She describes the pain as sharp, b urning and shooting travelling to the anterior media thigh. She is reporting improvement with IV decadron upon this admission. Numbness/tingling has resolved. She reports some increase in symptoms today with increased walking. Patient rates her pain at a 4-8/10. Dr. Orozco consulted pain service for consideration of lumbar GOMEZ. Patient has history of chronic Atrial fibrillation and has been on Eliquis therapy. Eliquis therapy was held upon this admission with last dose on 07/09/20. She has been on heparin during this admission. She denies bowel or bladder incontinence. Patient denies left lower extremity pain. She denies weakness, footdrop or falling. Patient has no further constitutional complaints. Pain Assessment Pain scale - at its best (0-10): 4 Pain scale - at its worst (0-10): 8 Allergies Allergy/AdvReac Type Severity Reaction Status Date / Time No Known Allergies Allergy Unknown Verified 07/09/20 14:40 Home Medications Medication Instructions Recorded Confirmed Type apixaban [Eliquis] 5 mg PO BID 07/09/20 07/09/20 History docusate sodium [Colace] 100 mg PO DAILY 07/09/20 07/09/20 History flecainide 75 mg PO Q12H 07/09/20 07/09/20 History methylprednisolone 4 mg PO UD 07/09/20 07/09/20 History [Methylprednisone] metoprolol succinate 25 mg PO DAILY 07/09/20 07/09/20 History mineral oil 15 ml PO DAILY 07/09/20 07/09/20 History triazolam 0.125 mg PO HS 07/09/20 07/09/20 History Pain History Pain Location Full Body Front + Back: 1. Right sided low back 2. Right thigh Pain Intensity Pain scale - at its best (0-10): 4 Pain scale - at its worst (0-10): 8 Cause Cause of Pain: Spontaneous Previous Treatment Treatments: physical therapy, ice and heat Medications: NSAIDs, Acetaminophen and Narcotics Patient History Medical History Atrial fibrillation CKD (chronic kidney disease), stage III GERD (gastroesophageal reflux disease) Pacemaker Tachy-joseluis syndrome Surgical History History of hysterectomy Family History Father Heart disease Mother Colorectal cancer Social History Smoking Status: Former smoker Hx Alcohol Use: No Hx Substance Use: No Preferred Language: Scottish Communication Ability: Effective Electrical Prospecting Supervisor Required: No Beliefs That Will Affect Care: None Current Living Situation: Alone Feels Safe at Home: Yes Safety Concerns: Feels Safe At This Time Assistive Devices: Glasses and Walker Physical Exam Physical Exam: General: Patient sitting quietly in exam room in NAD. Speech and thought process normal. Cognition intact. Head: Normocephalic and atraumatic. Neck: FROM without limitation. Upper extremities: Strength 5/5 and equal bilaterally. Sensation intact. Abdomen: Soft and non-distended. No organomegaly. Non-tender to palpation. No rebound or guarding. Back/spine: Non-tender over the midline. No focal facet or SI joint tenderness. No paravertebral or quadratus lumborum tenderness. No spasm. Moderately tender throughout the right gluteal to palpation. Lower extremities: SLR negative bilaterally. Sensation intact without deficits. Strength 5/5 and equal bilaterally. Posterior tibial pulses 2+ equal bilaterally. No edema. Neurology: CN II-XII grossly intact. Ambulatory function not witnessed. Results ([facility]) Diagnostic Review MRI Findings: CT: enhanced and non enhanced CT Findings: [facility], [phone] CT Scan Report Patient: JAY JAY LRAdmit Date: 07/09/20MR#: [id number] [facility] DRAcct ID:[id number]: Date: 1940[facility] Zip: [place] [id number]: [birth year]Location: EDSex: FRoom/Bed:Att Phy:Diagnosis: pain in back shooting down legs and armsPri Phy: Gerard Guidry-CService Date: 07/09/20Fa Phy:Interpreting Phy: Ahmet Savage MDAdmit Phy: Ordering Phy: Jaun Hays MD cc: ~ LUMBAR SPINE CT CT DOSE: HISTORY: right sciatic pain TECHNIQUE: Multiaxial CT images of the lumbar spine were performed and reformatted in the sagittal and coronal plane without the use of contrast. A dose lowering technique was utilized adhering to the principles of ALARA. COMPARISON: None. FINDINGS: A punctate stone within the left kidney. There is abnormal soft tissue surrounding the left common iliac artery. This is concerning for a neoplastic process such as lymphoma. This measures up to 2 cm in thickness. No fracture or subluxation within the lumbar spine. Severe disc space narrowing with partial fusion of the L5-S1 vertebral bodies. There is mild disc space narrowing at L2- L3 and T12-L1. 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 This is most pronounced at the L3-L4 and L4-L5 levels. Small right paracentral focal disc protrusion at L1-L2 without significant central canal narrowing. There is a moderate to large right paracentral/foraminal focal disc protrusion at L2-L3 which measures 1.6 x 0.5 cm. The disc protrusion likely compresses the exiting right nerve root at this level. There is moderate to severe central canal narrowing at this level due to the disc bulge and severe ligamentum and facet hypertrophy. Mild to moderate central canal narrowing at L3-L4 and L4-L5 due to the disc bulges and advanced ligamentum and facet hypertrophy. Calcified small focal central disc protrusion at L5-S1 resulting in mild central canal narrowing. IMPRESSION: 1. No fracture or subluxation within the lumbar spine. 2. Abnormal soft tissue surrounding the left common iliac artery measuring up to 2 cm in thickness. This is concerning for neoplastic process such as lymphoma. 3. There is a moderate to large right paracentral/foraminal disc protrusion at L2-L3 which likely compresses the exiting nerve root at this level. 4. Additional degenerative changes as described above. ACT 112: Negative or not required by law. Electronically signed by: Ahmet Savage M.D. 07/09/2020 3:43 PM Dictated: 07/09/201531Transcribed: 07/09/20 153 Previous Records Review Previous Records: personally reviewed by me
[2020-07-13] MEDS ORDERED: Nursing to Pharmacy Communication SCH (16:00)
[2020-07-13] MEDS ORDERED: bisacodyL 10 MG SUPP PR PRN (17:26)
[2020-07-13] MEDS: LIDOCAINE 5% 1 PATCH TD SCH (17:52)
[2020-07-13 21:59] LABS: Partial Thromboplastin Ratio 1.3; Partial Thromboplastin Time 34.3 Seconds (21.0-31.0)
[2020-07-13] MEDS: ALPRAZolam 0.5 MG TABLET PO PRN (22:55)
[2020-07-14] MEDS: oxyCODONE HCL IR 5 MG TAB (IMMEDIATE RELEASE) PO PRN ×4 (00:01→23:50)
[2020-07-14] MEDS ORDERED: Nursing to Pharmacy Communication SCH (00:30)
[2020-07-14] MEDS: HEPARIN SODIUM/DEXTROSE 25,000 UNITS/500 ML BAG IV SCH ×2 (00:32→16:50)
[2020-07-14 04:11] LABS: Hematocrit (blood only) 34.2 % (37-47); Mean Corpuscular Hemoglobin 33.9 pg (25-34); Mean Corpuscular Hgb Conc 35.1 g/dL (32-36); Mean Corpuscular Volume 96.6 fL (80-100); Mean Platelet Volume 9.8 fL (7.4-10.4); Platelet Count 253 K/uL (130-400); RDW Coefficient of Variation 13.9 % (11.5-14.5); RDW Standard Deviation 48.9 fL (36.4-46.3); Red Blood Count 3.54 M/uL (4.2-5.4); White Blood Count 9.18 K/uL (4.8-10.8)
[2020-07-14 04:29] LABS: BUN Creatinine Ratio 24.8 (10-20); Calcium 8.7 mg/dl (8.5-10.1); Creatinine Clr Calc Pharmacy 32.6 ml/min; Est GFR (African American) 47.5
[2020-07-14 04:31] LABS: Partial Thromboplastin Ratio 2.1
[2020-07-14 04:44] LABS: Partial Thromboplastin Time 55.2 Seconds (21.0-31.0)
[2020-07-14] MEDS: FLECAINIDE ACETATE 100 MG TABLET PO SCH ×2 (05:48→20:32)
[2020-07-14] MEDS: FAMOTIDINE 20 MG TAB PO SCH ×2 (08:04→20:32)
[2020-07-14] MEDS: METOPROLOL SUCC 25MG EXT REL TAB PO SCH ×2 (08:04→20:32)
[2020-07-14] MEDS: dexAMETHasone 4 MG TAB PO SCH (08:05)
[2020-07-14] MEDS: POLYETHYLENE (MIRALAX) 17 GM PACK PO SCH (08:05)
[2020-07-14] MEDS: DOCUSATE SODIUM 100 MG CAP PO SCH (08:05)
--- NOTE | 2020-07-14 10:22 | Hospitalist Progress Note ---
Date of Service July 14, 2020 Assessment & Plan (1) Lumbar radiculopathy: L2-L3 Disc Herniation Lumbar radiculopathy -CT C-SPINE: There is no evidence of fracture or subluxation involving the cervical spine. -CT L-SPINE: No fracture or subluxation within the lumbar spine. Abnormal soft tissue surrounding the left common iliac artery measuring up to 2 cm in thickness. This is concerning for neoplastic process such as lymphoma. There is a moderate to large right paracentral/foraminal disc protrusion at L2-L3 which likely compresses the exiting nerve root at this level. Planned for right L2-L3 transforaminal epidural injection tomorrow Hold heparin drip at 12:30 PM today. We will discuss with pain management about resuming Eliquis tomorrow after procedure Continue Decadron 4mg PO Daily. Will discuss with ortho surgeon about tapering off Pain control (2) Lymphadenopathy: Incidental findings on CAT scan--Cervical lymphadenopathy -CT Cervical spine: are numerous mildly enlarged cervical chain lymph nodes -CT Lumbar spine: Abnormal soft tissue surrounding the left common iliac artery measuring up to 2 cm in thickness. This is concerning for neoplastic process such as lymphoma. -Peripheral smear: Not contributory -Will need further work-up as outpatient. Will set up Oncology follwo up outpatient for further evaluation (3) Hyponatremia: Resolved (4) Atrial fibrillation: Was on Eliquis at home Eliquis currently on hold for procedure Currently on heparin drip which will be held at 1230 today for procedure tomorrow. Continue flecainide, Metoprolol Metoprolol was increased to 25 mg twice daily. Heart rate currently 57. May need to reduce back to home dose IV Lopressor PRN Continue IV Heparin while off Eliquis Monitor heart rate (5) Tachy-joseluis syndrome: S/P pacemaker Continue flecainide, metoprolol (6) CKD (chronic kidney disease), stage III: Baseline Cr: 1.2 Cr:1.24 Monitor renal functions Avoid nephrotoxic agents as able (7) GERD (gastroesophageal reflux disease): Pt was taking Zantac with relief until off market Continue Pepcid BID while on steroids DVT Px IV Heparin Transition back to Eliquis as able Code Status Full Code Admission and Anticipated Discharge Date Admission Date: July 09, 2020 Subjective Patient seen and examined. Patient reports feeling better. No back pain at this time. Still reports right thigh pain. No numbness, paresthesias Denies palpitation, chest pain, cough, shortness of breath, dyspnea on exertion Denies abdominal pain, nausea, vomiting, diarrhea constipation Denies urinary or bowel incontinence Denies dysuria, frequency, urgency, hematuria Physical Exam Constitutional: + well hydrated; no acute distress Elderly woman Eyes: PERRL, conjunctivae normal, anicteric sclerae ENMT: external ear and nose normal, oropharynx normal Respiratory: normal respiratory effort, lungs clear to auscultation Cardiovascular: Rate/Rhythm: regular rate and regular rhythm S1-S2 Gastrointestinal (Abdomen): normal bowel sounds, soft, nontender, no hepatosplenomegaly Musculoskeletal: No tenderness noted on palpation of back Patient ambulating independently No pedal edema Neurologic: PERRL, EOMI, accommodation nl, no face palsy, no dysarthria No sensory deficits on examination of lower extremities Psychiatric: A+Ox3, euthymic affect Results & Data Results & Data ([facility]) Vital Signs (Past 12 Hours) Vital Signs Temp Pulse Pulse Resp BP Pulse Ox 07/14/20 07:27 36.7 C 57 L 20 99/63 L 98 07/14/20 07:09 60 07/14/20 04:17 36.4 C L 60 18 110/70 97 07/14/20 01:01 74 07/13/20 23:05 36.3 C L 67 20 131/81 97 Laboratory Results Laboratory Results - last 24 hr 07/13/20 07/13/20 07/14/20 15:09 21:30 03:41 WBC 9.18 RBC 3.54 L Hgb 12.0 Hct 34.2 L MCV 96.6 MCH 33.9 MCHC 35.1 RDW Std Deviation 48.9 H RDW Coeff of Oliver 13.9 Plt Count 253 MPV 9.8 APTT 39.4 H 34.3 H PTT Ratio 1.5 1.3 Sodium Potassium Chloride Carbon Dioxide Anion Gap BUN Creatinine Est Cr Clr Drug Dosing Est GFR ( Amer) Est GFR (Non-Af Amer) BUN/Creatinine Ratio Glucose Calcium 07/14/20 07/14/20 03:41 03:41 WBC RBC Hgb Hct MCV MCH MCHC RDW Std Deviation RDW Coeff of Oliver Plt Count MPV APTT 55.2 H* PTT Ratio 2.1 Sodium 136 Potassium 4.0 Chloride 101 Carbon Dioxide 27 Anion Gap 8.0 BUN 31 H Creatinine 1.24 H Est Cr Clr Drug Dosing 32.6 Est GFR ( Amer) 47.5 Est GFR (Non-Af Amer) 41.0 BUN/Creatinine Ratio 24.8 H Glucose 88 Calcium 8.7
[2020-07-14] MEDS: LIDOCAINE 5% 1 PATCH TD SCH (20:33)
[2020-07-14] MEDS: ALPRAZolam 0.5 MG TABLET PO PRN (23:51)
[2020-07-15] MEDS: FLECAINIDE ACETATE 100 MG TABLET PO SCH ×2 (05:58→19:15)
[2020-07-15 06:02] LABS: Hematocrit (blood only) 35.2 % (37-47); Hemoglobin 12.8 g/dL (12.0-16.0); Mean Corpuscular Hemoglobin 35.5 pg (25-34); Mean Corpuscular Hgb Conc 36.4 g/dL (32-36); Mean Corpuscular Volume 97.5 fL (80-100); Mean Platelet Volume 10.2 fL (7.4-10.4); Platelet Count 243 K/uL (130-400); RDW Coefficient of Variation 13.9 % (11.5-14.5); RDW Standard Deviation 49.4 fL (36.4-46.3); Red Blood Count 3.61 M/uL (4.2-5.4); White Blood Count 7.65 K/uL (4.8-10.8)
[2020-07-15 06:31] LABS: BUN Creatinine Ratio 18.4 (10-20); Calcium 9.2 mg/dl (8.5-10.1); Est GFR (African American) 46.6; Est GFR (Non-African American) 40.2; Potassium 3.9 mmol/L (3.5-5.1)
[2020-07-15] MEDS: DOCUSATE SODIUM 100 MG CAP PO SCH (08:24)
[2020-07-15] MEDS: METOPROLOL SUCC 25MG EXT REL TAB PO SCH ×2 (08:25→20:00)
[2020-07-15] MEDS: FAMOTIDINE 20 MG TAB PO SCH ×2 (08:25→20:00)
[2020-07-15] MEDS: dexAMETHasone 4 MG TAB PO SCH (08:25)
[2020-07-15] MEDS: POLYETHYLENE (MIRALAX) 17 GM PACK PO SCH (08:28)
[2020-07-15 10:44] LABS: Partial Thromboplastin Ratio 0.8; Partial Thromboplastin Time 22.3 Seconds (21.0-31.0)
--- NOTE | 2020-07-15 11:00 | Hospitalist Progress Note ---
Date of Service July 15, 2020 Assessment & Plan (1) Lumbar radiculopathy: L2-L3 Disc Herniation Lumbar radiculopathy -CT C-SPINE: There is no evidence of fracture or subluxation involving the cervical spine. -CT L-SPINE: No fracture or subluxation within the lumbar spine. Abnormal soft tissue surrounding the left common iliac artery measuring up to 2 cm in thickness. This is concerning for neoplastic process such as lymphoma. There is a moderate to large right paracentral/foraminal disc protrusion at L2-L3 which likely compresses the exiting nerve root at this level. Planned for right L2-L3 transforaminal epidural injection rescheduled tomorrow NPO PMN Currently on Decadron 4 mg daily Pain well controlled We will follow-up post procedure (2) Lymphadenopathy: Incidental findings on CAT scan--Cervical lymphadenopathy -CT Cervical spine: are numerous mildly enlarged cervical chain lymph nodes -CT Lumbar spine: Abnormal soft tissue surrounding the left common iliac artery measuring up to 2 cm in thickness. This is concerning for neoplastic process such as lymphoma. -Peripheral smear: Not contributory -Will need further work-up as outpatient. Will set up Oncology follwo up outpatient for further evaluation (3) Hyponatremia: Resolved (4) Atrial fibrillation: Was on Eliquis at home Eliquis currently on hold for procedure Heparin drip held for procedure Continue flecainide, Metoprolol Metoprolol was increased to 25 mg twice daily. IV Lopressor PRN We will resume Eliquis after procedure Monitor heart rate (5) Tachy-joseluis syndrome: S/P pacemaker Continue flecainide, metoprolol (6) CKD (chronic kidney disease), stage III: Baseline Cr: 1.2 Cr:1.26 Monitor renal functions Avoid nephrotoxic agents as able (7) GERD (gastroesophageal reflux disease): Pt was taking Zantac with relief until off market Continue Pepcid BID while on steroids DVT Px Give hep sq today and hold off all anticoagulation for procedure Code Status Full Code Admission and Anticipated Discharge Date Admission Date: July 09, 2020 Subjective Patient seen and examined. Reports right thigh pain continue to improve significantly. Denies paresthesias Has been able to walk around with only mild increase in right leg pain Denied other complaints Physical Exam Constitutional: + well hydrated; no acute distress Eyes: PERRL, conjunctivae normal, anicteric sclerae ENMT: external ear and nose normal, oropharynx normal Respiratory: normal respiratory effort, lungs clear to auscultation Cardiovascular: Rate/Rhythm: regular rate and regular rhythm S1-S2 Gastrointestinal (Abdomen): normal bowel sounds, soft, nontender, no hepatosplenomegaly Musculoskeletal: no cyanosis or clubbing, extremities motor strength 5/5 Neurologic: PERRL, EOMI, accommodation nl, no face palsy, no dysarthria Psychiatric: A+Ox3, euthymic affect Results & Data Results & Data ([facility]) Vital Signs (Past 12 Hours) Vital Signs Temp Pulse Pulse Resp BP BP Pulse Ox 07/15/20 07:57 36.5 C 91 H 16 90/56 L 98 07/15/20 07:25 112 H 07/15/20 03:35 36.7 C 115 H 20 90/62 L 98 07/14/20 23:59 68 07/14/20 23:20 36.3 C L 103 H 20 161/98 H 99 Laboratory Results Laboratory Results - last 24 hr 07/15/20 07/15/20 07/15/20 05:46 05:46 10:19 WBC 7.65 RBC 3.61 L Hgb 12.8 Hct 35.2 L MCV 97.5 MCH 35.5 H MCHC 36.4 H RDW Std Deviation 49.4 H RDW Coeff of Oliver 13.9 Plt Count 243 MPV 10.2 APTT 22.3 PTT Ratio 0.8 Sodium 136 Potassium 3.9 Chloride 102 Carbon Dioxide 28 Anion Gap 6.0 BUN 23 H Creatinine 1.26 H Est Cr Clr Drug Dosing 32.0 Est GFR ( Amer) 46.6 Est GFR (Non-Af Amer) 40.2 BUN/Creatinine Ratio 18.4 Glucose 94 Calcium 9.2
[2020-07-15] MEDS: oxyCODONE HCL IR 5 MG TAB (IMMEDIATE RELEASE) PO PRN ×2 (11:46→23:04)
[2020-07-15] MEDS ORDERED: DEXAMETHASONE SOD INJ 10 MG/ML VIAL INJ SCH (12:30)
[2020-07-15] MEDS ORDERED: DEXAMETHASONE **PF** INJ 10 MG/ML VIAL EP SCH (12:30)
--- NOTE | 2020-07-15 12:40 | Anesthesiology Consultation ---
Date of Service July 15, 2020 History Surgery Operation Date: 07/15/20 12:45 Proposed Procedures p Right L2-L3 Transforaminal Epidural Injection - Jd Palmer MD, FIPP Height/Weight Height: 5 ft 5 in Weight: 57.4 kg Allergies Allergy/AdvReac Type Severity Reaction Status Date / Time No Known Allergies Allergy Unknown Verified 07/09/20 14:40 Medications Home Medications Medication Instructions Recorded Confirmed Last Taken apixaban [Eliquis] 5 mg PO BID 07/09/20 07/09/20 07/09/20 docusate sodium [Colace] 100 mg PO DAILY 07/09/20 07/09/20 07/09/20 flecainide 75 mg PO Q12H 07/09/20 07/09/20 07/09/20 methylprednisolone 4 mg PO UD 07/09/20 07/09/20 07/09/20 [Methylprednisone] metoprolol succinate 25 mg PO DAILY 07/09/20 07/09/20 07/09/20 mineral oil 15 ml PO DAILY 07/09/20 07/09/20 07/09/20 triazolam 0.125 mg PO HS 07/09/20 07/09/20 07/08/20 Active Medications Generic Name Dose Route Start Last Admin Trade Name Freq PRN Reason Stop Dose Admin Alprazolam 0.5 mg 07/10/20 18:31 07/14/20 23:51 Alprazolam 0.5 Mg Tablet PO 08/08/20 21:20 0.5 mg HS PRN Administration Insomnia Dexamethasone 4 mg 07/13/20 09:00 07/15/20 08:25 Dexamethasone 4 Mg Tab PO 08/12/20 08:59 4 mg DAILY HANNA Administration Docusate Sodium 100 mg 07/10/20 09:00 07/15/20 08:24 Docusate Sodium 100 Mg Cap PO 08/09/20 08:59 100 mg DAILY HANNA Administration Famotidine 20 mg 07/09/20 21:00 07/15/20 08:25 Famotidine 20 Mg Tab PO 08/08/20 20:59 20 mg BID HANNA Administration Flecainide Acetate 75 mg 07/09/20 19:00 07/15/20 05:58 Flecainide Acetate 100 Mg Tablet PO 08/08/20 18:59 75 mg Q12H HANNA Administration Heparin Sodium/Dextrose 25,000 units in 500 mls @ 0 mls/hr 07/12/20 15:45 07/14/20 16:50 Heparin Sodium/Dextrose IV 08/11/20 15:44 Not Given .Q0M HANNA Protocol 0 UNITS/HR Lidocaine 1 patch 07/09/20 18:00 07/14/20 20:33 Lidocaine 5% 1 Patch TD 08/08/20 17:59 1 patch DAILY@1800 HANNA Administration Metoprolol Succinate 25 mg 07/12/20 21:00 07/15/20 08:25 Metoprolol Succ 25mg Ext Rel Tab PO 08/11/20 20:59 25 mg BID HANNA Administration Metoprolol Tartrate 2.5 mg 07/12/20 13:39 07/12/20 13:49 Metoprolol Tartrate 1 Mg/Ml Vial IV 08/11/20 17:59 2.5 mg Q6 PRN Administration Tachycardia Miscellaneous 1 ea 07/09/20 18:00 07/15/20 05:59 Remove Lidoderm Patch N/A 08/08/20 17:59 1 ea DAILY@0600 HANNA Administration Oxycodone HCl 5 mg 07/09/20 17:54 07/15/20 11:46 Oxycodone Hcl Ir 5 Mg Tab (Immediate Release) PO 07/23/20 17:53 5 mg Q4H PRN Administration Moderate Pain Polyethylene Glycol 17 gm 07/10/20 09:00 07/15/20 08:28 Polyethylene (Miralax) 17 Gm Pack PO 08/09/20 08:59 Not Given DAILY HANNA Past Medical History Medical History Atrial fibrillation CKD (chronic kidney disease), stage III GERD (gastroesophageal reflux disease) Pacemaker Tachy-joseluis syndrome Exercise / Class Metabolic Activity III < 4 Walking/Shop/Light housework Past Family History Family History Father Heart disease Mother Colorectal cancer Past Surgical History Surgical History History of hysterectomy Past Anesthesia History No Hx of Anesthesia Complications and No Family Hx of Anesthesia Complications History of PONV No Hx of PONV and No Hx of Motion Sickness Social History Smoking Status: Former smoker Do You Dip or Chew Tobacco: No Hx Alcohol Use: No Hx Substance Use: No Physical Exam Vital Signs Last Vital Signs Temp 36.7 C 07/15/20 11:33 Pulse 65 07/15/20 11:33 Resp 18 07/15/20 11:33 BP 109/71 07/15/20 11:33 Pulse Ox 100 07/15/20 11:33 Testing Laboratory Results 07/15/20 05:46 07/15/20 05:46 APTT 22.3 Seconds (21.0-31.0) 07/15/20 10:19 Urine Color Yellow 07/09/20 14:41 Urine Appearance Clear (Clear) 07/09/20 14:41 Urine pH 5.0 (4.5-7.5) 07/09/20 14:41 Ur Specific [place] 1.013 (1.000-1.030) 07/09/20 14:41 Urine Protein Negative (Negative) 07/09/20 14:41 Urine Glucose (UA) Negative (Negative) 07/09/20 14:41 Urine Ketones 1+ (Negative) H 07/09/20 14:41 Urine Nitrite Negative (Negative) 07/09/20 14:41 Ur Leukocyte Esterase Negative (Negative) 07/09/20 14:41
[2020-07-15] MEDS ORDERED: HEPARIN SOD 5,000 UNIT/0.5 ML VIAL SQ ONE (13:30)
--- NOTE | 2020-07-15 15:37 | Anesthesiology Consultation ---
Date of Service July 15, 2020 Assessment & Plan (1) Encounter for pre-operative examination: Chart Review Chart Review: Acceptable Risk for Surgery and Patient NOT seen in Pre Admission Testing covid negative 07/09/2020. Consults Requested none History Surgery Operation Date: 07/15/20 12:45 Proposed Procedures p Right L2-L3 Transforaminal Epidural Injection - Jd Palmer MD, [facility] Operation Date: 07/16/20 07:00 Proposed Procedures p L2-3 Transforaminal Epicural - Jd Palmer MD, [facility] Height/Weight Height: 5 ft 5 in Weight: 57.4 kg Allergies Allergy/AdvReac Type Severity Reaction Status Date / Time No Known Allergies Allergy Unknown Verified 07/09/20 14:40 Medications Home Medications Medication Instructions Recorded Confirmed Last Taken apixaban [Eliquis] 5 mg PO BID 07/09/20 07/09/20 07/09/20 docusate sodium [Colace] 100 mg PO DAILY 07/09/20 07/09/20 07/09/20 flecainide 75 mg PO Q12H 07/09/20 07/09/20 07/09/20 methylprednisolone 4 mg PO UD 07/09/20 07/09/20 07/09/20 [Methylprednisone] metoprolol succinate 25 mg PO DAILY 07/09/20 07/09/20 07/09/20 mineral oil 15 ml PO DAILY 07/09/20 07/09/20 07/09/20 triazolam 0.125 mg PO HS 07/09/20 07/09/20 07/08/20 Active Medications Generic Name Dose Route Start Last Admin Trade Name Deonq PRN Reason Stop Dose Admin Alprazolam 0.5 mg 07/10/20 18:31 07/14/20 23:51 Alprazolam 0.5 Mg Tablet PO 08/08/20 21:20 0.5 mg HS PRN Administration Insomnia Dexamethasone 4 mg 07/13/20 09:00 07/15/20 08:25 Dexamethasone 4 Mg Tab PO 08/12/20 08:59 4 mg DAILY HANNA Administration Docusate Sodium 100 mg 07/10/20 09:00 07/15/20 08:24 Docusate Sodium 100 Mg Cap PO 08/09/20 08:59 100 mg DAILY HANNA Administration Famotidine 20 mg 07/09/20 21:00 07/15/20 08:25 Famotidine 20 Mg Tab PO 08/08/20 20:59 20 mg BID HANNA Administration Flecainide Acetate 75 mg 07/09/20 19:00 07/15/20 05:58 Flecainide Acetate 100 Mg Tablet PO 08/08/20 18:59 75 mg Q12H HANNA Administration Heparin Sodium/Dextrose 25,000 units in 500 mls @ 0 mls/hr 07/12/20 15:45 07/14/20 16:50 Heparin Sodium/Dextrose IV 08/11/20 15:44 Not Given .Q0M HANNA Protocol 0 UNITS/HR Lidocaine 1 patch 07/09/20 18:00 07/14/20 20:33 Lidocaine 5% 1 Patch TD 08/08/20 17:59 1 patch DAILY@1800 HANNA Administration Metoprolol Succinate 25 mg 07/12/20 21:00 07/15/20 08:25 Metoprolol Succ 25mg Ext Rel Tab PO 08/11/20 20:59 25 mg BID HANNA Administration Metoprolol Tartrate 2.5 mg 07/12/20 13:39 07/12/20 13:49 Metoprolol Tartrate 1 Mg/Ml Vial IV 08/11/20 17:59 2.5 mg Q6 PRN Administration Tachycardia Miscellaneous 1 ea 07/09/20 18:00 07/15/20 05:59 Remove Lidoderm Patch N/A 08/08/20 17:59 1 ea DAILY@0600 HANNA Administration Oxycodone HCl 5 mg 07/09/20 17:54 07/15/20 11:46 Oxycodone Hcl Ir 5 Mg Tab (Immediate Release) PO 07/23/20 17:53 5 mg Q4H PRN Administration Moderate Pain Polyethylene Glycol 17 gm 07/10/20 09:00 07/15/20 08:28 Polyethylene (Miralax) 17 Gm Pack PO 08/09/20 08:59 Not Given DAILY HANNA Past Medical History Medical History Atrial fibrillation CKD (chronic kidney disease), stage III GERD (gastroesophageal reflux disease) Pacemaker Tachy-joseluis syndrome Past Family History Family History Father Heart disease Mother Colorectal cancer Past Surgical History Surgical History History of hysterectomy Social History Smoking Status: Former smoker Hx Alcohol Use: No Hx Substance Use: No Physical Exam Vital Signs Last Vital Signs Temp 36.4 C L 07/15/20 12:39 Pulse 62 07/15/20 12:39 Resp 18 07/15/20 12:39 BP 135/68 07/15/20 12:39 Pulse Ox 99 07/15/20 12:39 Testing Laboratory Results 07/15/20 05:46 07/15/20 05:46 APTT 22.3 Seconds (21.0-31.0) 07/15/20 10:19 Urine Color Yellow 07/09/20 14:41 Urine Appearance Clear (Clear) 07/09/20 14:41 Urine pH 5.0 (4.5-7.5) 07/09/20 14:41 Ur Specific [place] 1.013 (1.000-1.030) 07/09/20 14:41 Urine Protein Negative (Negative) 07/09/20 14:41 Urine Glucose (UA) Negative (Negative) 07/09/20 14:41 Urine Ketones 1+ (Negative) H 07/09/20 14:41 Urine Nitrite Negative (Negative) 07/09/20 14:41 Ur Leukocyte Esterase Negative (Negative) 07/09/20 14:41 Electrocardiogram Date: 07/09/20 DICTATED BY: Gage Dang MD Test Reason : Blood Pressure : / mmHG Vent. Rate : 092 BPM Atrial Rate : 092 BPM P-R Int : 208 ms QRS Dur : 088 ms QT Int : 400 ms P-R-T Axes : 099 084 108 degrees QTc Int : 494 ms Atrial-sensed ventricular-paced rhythm Abnormal ECG When compared with ECG of 13-AUG-2012 06:36, Electronic ventricular pacemaker has replaced Sinus rhythm Vent. rate has increased BY 47 BPM Confirmed by Gage Dang ([id number]) on 07/09/2020 6:16:33 PM
[2020-07-15] MEDS: LIDOCAINE 5% 1 PATCH TD SCH (20:01)
[2020-07-15] MEDS: ALPRAZolam 0.5 MG TABLET PO PRN (23:04)
[2020-07-16] MEDS: FLECAINIDE ACETATE 100 MG TABLET PO SCH (06:17)
[2020-07-16 06:20] LABS: Hematocrit (blood only) 34.7 % (37-47); Hemoglobin 12.3 g/dL (12.0-16.0); Mean Corpuscular Hemoglobin 34.6 pg (25-34); Mean Corpuscular Hgb Conc 35.4 g/dL (32-36); Mean Corpuscular Volume 97.7 fL (80-100); Mean Platelet Volume 10.2 fL (7.4-10.4); Platelet Count 260 K/uL (130-400); RDW Standard Deviation 49.6 fL (36.4-46.3); Red Blood Count 3.55 M/uL (4.2-5.4); White Blood Count 7.68 K/uL (4.8-10.8)
--- NOTE | 2020-07-16 06:34 | History & Physical Bridge Note ---
Date of Service July 16, 2020 History & Physical Bridge Note I have examined the patient, reviewed the History & Physical and in the interval since the performance of the History & Physical I have noted the following changes of clinical significance: no changes noted. Piedad Lr is an 79-year-old female with a history of low back pain and lumbar radicular symptoms in the right side as result of a L2-3 right-sided disc herniation. She is scheduled to undergo right L2/L3 transforaminal epidural ulices roid injection for management of her symptoms. Her anticoagulant medications have been held for appropriate time and no other contraindication noted to proceeding with the injection this morning. There has been no change in her history, examination and review of laboratory studies indicate no contraindications. Potential risks including infection, bleeding, nerve injury, persistent pain at the injection site, reaction to any one of the medication used for the procedure, possibility of postdural puncture headache as well as persistent symptoms after the procedure were discussed with the patient. Patient was also informed that additional procedures may be required to treat the complications. Alternatives to this procedure were also discussed with the patient. Patient's questions were answered. Patient gave informed consent.
[2020-07-16 06:36] LABS: Partial Thromboplastin Ratio 0.9; Partial Thromboplastin Time 23.1 Seconds (21.0-31.0)
[2020-07-16] MEDS ORDERED: MIDAZOLAM HCL 1 MG/ML 2ML VIAL ONE (06:51)
[2020-07-16 06:55] LABS: BUN Creatinine Ratio 19.5 (10-20); Calcium 8.8 mg/dl (8.5-10.1); Creatinine Clr Calc Pharmacy 29.9 ml/min; Est GFR (African American) 42.9; Potassium 3.8 mmol/L (3.5-5.1)
[2020-07-16] MEDS ORDERED: fentaNYL citrate 100 MCG/2 ML VIAL IV PRN (06:58)
[2020-07-16] MEDS ORDERED: ePHEDrine sulfate 50 MG/ML AMP IV PRN (06:58)
[2020-07-16] MEDS ORDERED: ATROPINE SULFATE 0.1 MG/ML 10ML SYR IV PRN (06:58)
[2020-07-16] MEDS ORDERED: fentaNYL citrate 100 MCG/2 ML VIAL ONE (07:04)
[2020-07-16] MEDS ORDERED: DEXAMETHASONE **PF** INJ 10 MG/ML VIAL ONE (07:04)
[2020-07-16] MEDS ORDERED: ONDANSETRON INJ 2 MG/ML 2 ML VIAL ONE (07:16)
[2020-07-16] MEDS ORDERED: LIDOCAINE HCL 2% 2 ML VIAL/AMP(20MG/ML) INFIL ONE (07:21)
[2020-07-16] MEDS ORDERED: IOPAMIDOL INJ 61% 15 ML VIAL INJ ONE (07:30)
--- NOTE | 2020-07-16 07:33 | Operative Report ---
Post Operative Report Pre & Post Diagnosis Operation Date: 07/15/20 12:45 <No data on this case meets the specified criteria> Operation Date: 07/16/20 07:00 Pre-Op Diagnosis: L2-L3 Radiculitis Post-Op Diagnosis: L2-L3 Radiculitis I identified the patient and participated in the time-out.: Yes Procedure Operation Date: 07/16/20 07:00 Actual Procedures L2-3 Transforaminal Epidural Injection(Right) - Jd Palmer MD, [facility] Surgeon Jd Palmer MD, [facility] [employer]nsics Analyst None Estimated Blood Loss 0 Findings Consistent with Post-Op Diagnosis Specimens None Drains None Anesthesia Type MAC Complications none Disposition Disposition: Recovery Room Description of Procedure LUMBAR TRANSFORAMINAL EPIDURAL STEROID INJECTION Diagnosis: L2/L3 Radiculitis Level injected: Right L2/L3 Surgeon: Dr. Palmer Prior to starting, the Patients diagnosis and the procedure were reviewed with the patient in detail. Possible risks, complications and alternative therapies were also reviewed. Patients questions were answered. Informed consent was obtained. Allergies and medication list was reviewed. The patient was brought to the fluoroscopy room and placed in prone position on the table. Immediately prior to starting the procedure, a ``time out was conducted with the staff and the patient where the patient was identified, proposed procedure was verified, consent was reviewed and the proper site for the planned procedure was identified. Fluoroscopy was utilized in performing the procedure to assist the placement of the needle, to evaluate the final position of the needle prior to injection and to avoid intravascular injection. Monitors used included intermittent blood pressure with automated device, continuous pulse oximetry and level of consciousness. Patient was not given any intravenous sedation and constant verbal contact was maintained throughout the procedure. Biplanar fluoroscopy was used to assist in placement of the needle as well as to evaluate final needle position prior to the injection. On examination, no signs of skin breakdown or infection were noted at the injection site. Lumbar-sacral area was prepped with DuraPrep followed by Betadine solution. Sterile drapes were applied. The appropriate interspace and disk was identified in a true AP view. The fluoroscope was then rotated to obtain a decubitus view in such a manner so that the superior articular process of the inferior vertebra was bisecting the pars inter-articularis of the vertebra above in two. A 22 Gauge 3.5 inch curved (15 degrees) spinal needle was inserted through the skin and subcutaneous tissues, after infiltration of 2 cc of 2% Xylocaine MPF, and advanced in a co-axial technique. Needle tip was first placed on the infero-lateral margin of the pars inter-articularis. Once the bony margin was contacted, the C-arm was rotated to obtain a lateral view. The needle was slowly ``walked off the bone and advanced toward the anterior and superior aspect of the foramen. Patient did not experience any pain or paresthesia. Six inch micro bore tubing was attached to the needle and aspiration did not demonstrate CSF or blood. AP view was checked to ensure the needle tip was in close proximity to the nerve root in the proximal neural foramen lateral to the inferior articular process and in the 6 oclock position. 1 cc of Isovue 300 contrast was injected via the needle under live fluoroscopy. Spread of the contrast was noted in the epidural space and along the nerve root. Neither subdural or subarachnoid spread nor intravascular uptake was noted on plain fluoroscopy. Approximately 10 second digital subtraction angiogram at 8 f/s rate was done in AP view with additional contrast. No vascular uptake was noted. Next 10 mg of aqueous dexamethasone was injected followed by 2 cc of 2% Xylocaine MPF to flush the needle. The patient did not experience pain during the injection. Adequate hemostasis was noted. A sterile Band-Aid was applied to the injection site. Patient was monitored for 30 minutes and discharged with an accompanying adult. Discharge instructions were reviewed with the patient/caregiver. Any specific questions were answered. Patient/caregiver voiced understanding of the instructions. Follow-up appointment has been scheduled. I attest to the content of the Intraoperative Record and any orders documented therein. Any exceptions are noted below.
--- NOTE | 2020-07-16 08:27 | Anesthesiology Progress Note ---
Date of Service July 16, 2020 Anesthesia Post Procedure Vital Signs Vital Signs: Temp Pulse Pulse Pulse Resp BP BP 07/16/20 08:00 60 13 110/60 07/16/20 07:50 36.2 C L 60 15 117/60 07/16/20 07:40 60 17 104/63 07/16/20 07:34 36.8 C 61 19 117/71 07/16/20 06:50 36.8 C 60 16 138/76 07/16/20 04:24 36.7 C 61 16 105/64 07/15/20 23:59 36.6 C 60 18 126/80 07/15/20 20:00 36.5 C 65 16 115/78 07/15/20 16:00 66 07/15/20 15:59 36.6 C 65 18 109/72 07/15/20 12:39 36.4 C L 62 18 135/68 07/15/20 11:33 36.7 C 65 18 109/71 Pulse Ox 07/16/20 08:00 99 07/16/20 07:50 99 07/16/20 07:40 98 07/16/20 07:34 99 07/16/20 06:50 100 07/16/20 04:24 99 07/15/20 23:59 97 07/15/20 20:00 98 07/15/20 16:00 07/15/20 15:59 98 07/15/20 12:39 99 07/15/20 11:33 100 Pain Intensity Lower Back: Pain Intensity: 3 Transfer of Care Handoff Completed per policy Notes Mental Status: alert / awake / arousable and participated in evaluation Patient Amnestic to Procedure: Yes Nausea / Vomiting: adequately controlled Pain: adequately controlled Airway Patency, RR, SpO2: stable & adequate BP & HR: stable & adequate Hydration State: stable & adequate Anesthetic Complications: no major complications apparent
[2020-07-16] MEDS: METOPROLOL SUCC 25MG EXT REL TAB PO SCH (08:52)
[2020-07-16] MEDS: DOCUSATE SODIUM 100 MG CAP PO SCH (08:52)
[2020-07-16] MEDS: FAMOTIDINE 20 MG TAB PO SCH (08:52)
[2020-07-16] MEDS: POLYETHYLENE (MIRALAX) 17 GM PACK PO SCH (09:01)
--- NOTE | 2020-07-16 10:08 | Discharge Summary ---
Date of Service July 16, 2020 Admission HPI Per Admitting Provider Pt is 79 y/o F with PMH atrial fibrillation on Eliquis, tachybrady syndrome s/p pacemaker, CKD III, GERD presented to ER for low back pain x 10 days. Reports was reaching overhead and felt popping sensation to low back 10 days ago. C/O right low back pain with radiation to right lower leg ending at the knee. Also c/o paresthesias and numbness sensation to right thigh. Denies any other injury or trauma. Reports had some burning sensation of low back that radiated up back to neck and down bilateral arms. Went to PT and is On medrol dose pack without relief. Tried gabapentin, duloxetine but she reports side effects so did not take further. Reports has appointment with Ortho Spine-Dr Orozco next week. Denies fever/chills, diaphoresis, N/V/D/C, SCOTT, dizziness, syncope, vision changes, neck pain, CP, SOB, orthopnea, palpitations, cough, sore throat, choking, otalgia, rhinorrhea, abdominal pain, extremity weakness, extremity edema, rashes, urinary symptoms, loss control of bowel/bladder. Admission Exam Per Admitting Provider General: no distress, WDWN Head: normocephalic, atraumatic Eyes: conjunctiva non-injected, anicteric ENT: normal inspection external ears, nose, mucous membranes moist Neck: supple, trachea midline, +nontender palpable cervical lymphadenopathy; no supraclavicular or axillary lymphadenopathy noted on palpation Lungs: clear, no respiratory distress, no wheezing/rhonchi/rales CV: RRR, no murmur, no pretibial edema Abd: normal BS, soft, non-tender Back: no discoloration, no significant tenderness to palpation of back at this time (pt received pain meds prior to exam), negative straight leg raising Ext: no cyanosis, no calf tenderness, distal pulses intact, sensation to light touch intact Neuro: A&O x 3, no focal deficits noted, normal affect Skin: warm, dry Principal Diagnosis Lumbar radiculopathy Disc prolapse at L2-3 Discharge Exam Constitutional + well hydrated; no acute distress Eyes PERRL, conjunctivae normal, anicteric sclerae ENMT external ear and nose normal, oropharynx normal Respiratory normal respiratory effort, lungs clear to auscultation Cardiovascular Rate/Rhythm: regular rate and regular rhythm S1 S2. No pedal edema Gastrointestinal (Abdomen) normal bowel sounds, soft, nontender, no hepatosplenomegaly Musculoskeletal no cyanosis or clubbing, extremities motor strength 5/5 Neurologic PERRL, EOMI, accommodation nl, no face palsy, no dysarthria Psychiatric A+Ox3, euthymic affect Discharge Data Allergies Allergy/AdvReac Type Severity Reaction Status Date / Time No Known Allergies Allergy Unknown Verified 07/09/20 14:40 Consultations 07/09/20 16:35 ED Decision to Admit Stat 07/09/20 17:54 Consult Case Management - Discharge Planning Routine Consult Orthopedic Surgery Routine 07/13/20 13:07 Consult Pain Management Routine Procedures Performed Operation Date: 07/15/20 12:45 <No data on this case meets the specified criteria> Operation Date: 07/16/20 07:00 Actual Procedures p L2-3 Transforaminal Epidural Injection(Right) - Jd Palmer MD, [facility] Ordered Studies 07/09/20 13:57 CT cervical spine wo con Stat Skeletal structures: The skeletal structures are osteopenic. There is no evidence of fracture or subluxation involving the cervical spine. Vertebral body height is maintained. There is minimal anterolisthesis at C3-C4 and C4-C5. Alignment is otherwise preserved. There is straightening of the cervical ting dosis. Anterior osteophytes are seen throughout. The odontoid process and lateral masses are intact. The atlantoaxial articulation is preserved. The spinous processes appear intact. There is moderate to advanced multilevel cervical spondylosis. Uncovertebral and facet arthropathy contribute to foraminal stenosis at most levels. There is complete bony fusion of several facet joints. Intervertebral discs: There is moderate disc space narrowing at C5-C6 and C6-C7. Mild disc space narrowing is seen at C4-C5. Central canal: Large posterior disc osteophyte complexes at C4-C5, C5-C6, and C6-C7 may contribute to multilevel acquired compromise of the central canal. Soft tissues: The prevertebral and paraspinous soft tissues are within normal limits. There are numerous prominent cervical lymph nodes. A left cervical chain node on image #41 measures 1.2 x 1.0 cm. A left cervical node on image #35 measures 1.0 x 0.9 cm. A node in the right lower cervical chain on image #67 measures 1.1 x 0.7 cm. Calvarium: The visualized calvarium at the skull base appears intact. Brain parenchyma: Partially visualized brain parenchyma at the skull base is within normal limits. Sinuses and mastoids: The visualized paranasal sinuses are clear. The mastoid air cells are well pneumatized. Lung apices: Clear as visualized. IMPRESSION: 1. There is no evidence of fracture or subluxation involving the cervical spine. 2. Osteopenia and multilevel spondylotic change as above. 3. There are numerous mildly enlarged cervical chain lymph nodes. Clinical correlation will be required CT lumbar spine wo con Stat A punctate stone within the left kidney. There is abnormal soft tissue surrounding the left common iliac artery. This is concerning for a neoplastic process such as lymphoma. This measures up to 2 cm in thickness. No fracture or subluxation within the lumbar spine. Severe disc space narrowing with partial fusion of the L5-S1 vertebral bodies. There is mild disc space narrowing at L2- L3 and T12-L1. 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 This is most pronounced at the L3-L4 and L4-L5 levels. Small right paracentral focal disc protrusion at L1-L2 without significant central canal narrowing. There is a moderate to large right paracentral/foraminal focal disc protrusion at L2-L3 which measures 1.6 x 0.5 cm. The disc protrusion likely compresses the exiting right nerve root at this level. There is moderate to severe central canal narrowing at this level due to the disc bulge and severe ligamentum and facet hypertrophy. Mild to moderate central canal narrowing at L3-L4 and L4-L5 due to the disc bulges and advanced ligamentum and facet hypertrophy. Calcified small focal central disc protrusion at L5-S1 resulting in mild central canal narrowing. IMPRESSION: 1. No fracture or subluxation within the lumbar spine. 2. Abnormal soft tissue surrounding the left common iliac artery measuring up to 2 cm in thickness. This is concerning for neoplastic process such as lymphoma. 3. There is a moderate to large right paracentral/foraminal disc protrusion at L2-L3 which likely compresses the exiting nerve root at this level. 4. Additional degenerative changes as described above 07/16/20 07:00 FL epidural injection Routine Hospital Course (1) Lumbar radiculopathy: L2-L3 Disc Herniation Lumbar radiculopathy -CT C-SPINE: There is no evidence of fracture or subluxation involving the cervical spine. -CT L-SPINE: No fracture or subluxation within the lumbar spine. Abnormal soft tissue surrounding the left common iliac artery measuring up to 2 cm in thickness. This is concerning for neoplastic process such as lymphoma. There is a moderate to large right paracentral/foraminal disc protrusion at L2-L3 which likely compresses the exiting nerve root at this level. Patient's Eliquis was suspended and started on IV heparin. She was also started on dexamethasone p.o. with improvement of symptoms. She had transforaminal epidural injection steroid Patient's pain currently resolved. Patient discharged home to follow-up with pain management clinic outpatient Patient advised to resume Eliquis later tonight (2) Lymphadenopathy: Incidental findings on CAT scan--Cervical lymphadenopathy -CT Cervical spine: are numerous mildly enlarged cervical chain lymph nodes -CT Lumbar spine: Abnormal soft tissue surrounding the left common iliac artery measuring up to 2 cm in thickness. This is concerning for neoplastic process such as lymphoma. -Peripheral smear: Not contributory Patient will need further evaluation. PCP may set up Oncology follow up outpatient for further evaluation (3) Hyponatremia: Resolved (4) Atrial fibrillation: Can resume eliquis tonight. Continue flecainide Metoprolol was temporarily increased to bid while inpatient for better rate control The tachycardia is likely due to pain Discharged on home dose of metoprolol now that pain is controlled PCP to follow up on outpatient (5) Tachy-joseluis syndrome: S/P pacemaker Continue flecainide, metoprolol (6) CKD (chronic kidney disease), stage III: Baseline Cr: 1.2 Cr:1.35 today Monitor renal functions Avoid nephrotoxic agents as able Total Time Total Time Spent Total Time Spent (In Minutes): 50 Total Time Includes: Examination of the Patient, Discharge Planning, Medication Reconciliation and Communication With Other Providers Discharge Plan Discharge Items Patient Disposition: Home - Self-Care Reason For Visit: BACK PAIN Discharge Diagnosis: Lumbar radiculopathy Disc prolapse at L2-3 Activity: Per Instructions section Lifting: No more than 5 pounds Bathing: No limitations Sexual Activity: When tolerated Exercise/Sports: Wait until after follow-up appointment Non-emergency contact: Pain Management Call non-emergency contact if: your symptoms worsen, your pain is worsening, your temperature is above 101, your wound has increased redness, your wound has increased drainage and your wound pain has increased Follow-up/Referrals: Jd Palmer MD, [facility] [Anesthesiologist] - 07/23/20 Raven Hester PA-C [Physician Mobile Equipment Servicer] - 07/27/20 1:00 pm Gerard Guidry PA-C [Primary Care Provider] - 07/21/20 10:00 am Diet: Regular and Heart Healthy Add Attending Provider Instructions: Mrs Yoo You came to the hospital complaining of low back pain. You were evaluated and found to have a disc protrusion with nerve compression at the level of L2-L3. This was managed medically. You also had steroid epidural injection by pain management. Your symptoms improved. Please follow-up [facility] pain management in the clinic. You can resume your Eliquis tonight after 4 PM. There were some lymph nodes noted on your CT scans that may need further evaluation by the Oncologist outpatient. Please discuss this with your Primary Doctor. It was a pleasure taking care of you [facility] [employer] Provider Instructions: Please follow this additional instructions: * Change Band-Aid once daily. * Call [facility] center if you experience any fevers above 101.5 F, bleeding or drainage at the procedure site, new onset of progressively worsening back pain, new numbness or weakness in lower extremities or no bowel bladder incontinence. After hours, go to the nearest emergency room. * Your follow-up appointment is scheduled on next 07/23/2020 Pending Studies at Discharge: No Stand-Alone Forms: [facility], Smoking Cessation Medications and DC Order Prescriptions: Continued mineral oil Oil 15 ml PO DAILY RF: 0 triazolam 0.25 mg Tablet 0.125 mg PO HS RF: 0 flecainide 150 mg Tablet 75 mg PO Q12H RF: 0 docusate sodium [Colace] 100 mg Capsule 100 mg PO DAILY RF: 0 metoprolol succinate 25 mg Tablet Extended Release 24 Hr 25 mg PO DAILY RF: 0 Eliquis 5 mg Tablet 5 mg PO BID RF: 0 Discontinued methylprednisolone [Methylprednisone] 4 mg Tablet 4 mg PO UD RF: 0 Discharge Orders: Discharge Order (Routine); Ordered 07/16/20 Ordered By: Barbara Segura Admission Data Admit Date/Time: 07/09/20 16:55 Attending Provider: Barbara Segrua I. Admit Provider: Morgan Billings Primary Care Provider: Gerard Guidry Other Providers: Morgan Billings ; Bran Orozco ; Jd Palmer Other Interventions: Discharge Summary Assessment (RN) Last Done: 07/16/20 10:45
== END 2020-07-16 16:46 | disposition home or self-care (01) | DRG 552 ==
LOC: ED 12:29 → SUATTDRO 16:55 → 2N 16:55